=== PATIENT | female | born 1960 | race Caucasian/White ===

== ENCOUNTER 2018-01-08 11:57 | Inpatient (IN) | payer MEDICARE ==
[~2018-01-08] VITALS: Ht 165.1 cm; Wt 63.6 kg
[2018-01-08 13:30] VITALS: BP 117/68
[2018-01-08] MEDS ORDERED: METO-269 PO (14:02)
[2018-01-08] MEDS ORDERED: AMOX50TA PO (14:02)
[2018-01-08] MEDS ORDERED: CLON1TAB4 PO (14:02)
[2018-01-08] MEDS ORDERED: MORP30TA PO (14:02)
[2018-01-08] MEDS ORDERED: AMLO5TAB2 PO (14:02)
[2018-01-08] MEDS ORDERED: POTA20TA84 PO (14:02)
[2018-01-08] MEDS ORDERED: WARF-31 PO (14:02)
[2018-01-08] MEDS ORDERED: CLON0.5T11 PO (14:02)
[2018-01-08] MEDS ORDERED: CHLO25TA PO (14:02)
[2018-01-08] MEDS ORDERED: ZOLP10TA4 PO (14:02)
[2018-01-08] MEDS ORDERED: ONDANSETRON PF 4 MG/2 ML VIAL. IV PRN ×2 (14:15→14:30)
[2018-01-08] MEDS ORDERED: ZOLPIDEM 5 MG TABLET. PO PRN (14:15)
[2018-01-08] MEDS ORDERED: clonazePAM 0.5 MG TABLET PO PRN (14:15)
--- NOTE | 2018-01-08 14:22 | PDOC ---
CIELO HERNANDEZ HEAD GRINDER 01/08/18 1422: Provider Note Provider Note 01/08/2018 1400 Presently doing well, VSS. no CP but still has some FINLEY although no pleural effusion nor consolidations noted from today's CXR. Was initially hypotensive with mild bradycardia today at [place] due to morphine, thiazide, norvasc and toprol given Seen by cardiology at [place] today Persistent low Na and K with CP/FINLEY/PVCs Warfarin for clotting disorder and May Thurner syndrome Hx of cephalic AVM, IVC filter, Hx of iliac vein stent, hx of histoplasmosis and recent PNA with levaquin and prednisone 2 quarts gatorade daily since 2 weeks ago, multiple K supplements at home. Prednisone and levaquin finished last Thursday for her PNA and sinusitis. TSH, BMP, Mg, Urine osm,K,Na TTE, MPI in am Consider nephrology consult. Stop chlorthalidone, no aldactone. No ARB. Continue with norvasc with lower dose of toprol to restart tomorrow and monitor BP/HR. Hydralazine PRN Pls see cardiology consult attached to chart today for further details. YOEL HAYS MD 01/08/18 1635: Provider Note Provider Note Pt. seen and examined. Agree with above INPATIENT NURSING AIDE note. 57 y.o woman with atypical chest pain. Normal cardiac exam. Supportive care. Await nephrology, neurology consults . MPI pending. CIELO HERNANDEZ APRN Jan 08, 2018 14:22 YOEL HAYS MD Jan 08, 2018 16:35
[2018-01-08] MEDS ORDERED: IBUPROFEN 400 MG TABLET. PO PRN (14:30)
[2018-01-08] MEDS ORDERED: MORPHINE SULFATE 2 MG/ML VIAL. IV PRN (14:30)
[2018-01-08] MEDS ORDERED: MAG HYDROX/ALUMINUM HYD/SIMETH 30 ML ORAL.SUSP PO PRN (14:30)
[2018-01-08] MEDS ORDERED: PROCHLORPERAZINE 10 MG/2 ML VIAL. IV PRN (14:30)
[2018-01-08] MEDS ORDERED: MAGNESIUM HYDROXIDE 2,400 MG/30 ML ORAL.SUSP. PO PRN (14:30)
[2018-01-08] MEDS ORDERED: oxyCODONE IR 5 MG TABLET PO PRN (14:30)
[2018-01-08] MEDS ORDERED: CALCIUM CARBONATE 500 MG TAB.CHEW PO PRN (14:30)
--- NOTE | 2018-01-08 14:42 | PDOC1 ---
History and Physical Date of Admission Date of Admission 01/08/18 Identification/Chief Complaint Chief Complaint chest pain Source Source: Chart review, Patient History of Present Illness History of Present Illness 57 yo F, was sent from [facility] for chest pain. pT Said she started to feel substernal chest pressure feeling about 2 weeks ago , with some cough , smoking, went to PCP, was found low na, K, High wbc wo details, augmentin given. She went back to , was told PNA, levaqin was given. yesterday she went to see PCP again since the chest pain is getting worse, was fouND PVC and admitted to ICU. The chest pain only happens when walks, gone when sit down, with sob, but without diaphoresis, n/v. said not worsening cough compared to her baseline. has h/o AVM, hypercoagulopathy dz , DVT on warfarin, IVC filter. avm on scalp, pt has worsening headache for 2 weeks. EKG OK. LOW k 3.2. MAG 2 inr 4 as per pt. Past Medical History Cardiovascular: HTN Past Surgical History Past Surgical History: No pertinent history Family History Family History: Hypertension Social History Smoke: 1 pack per day ALCOHOL: rare Drugs: None Current Medications Current Medications Current Medications Medications (Trade) Dose Ordered Sig/Gerry Start Time Stop Time Status Last Admin Dose Admin Acetaminophen (Tylenol) 650 mg PRN Q6HRS PRN 01/08/18 14:30 UNV Al Hydroxide/Mg Hydroxide (Mylanta Plus Xs) 30 ml PRN Q3HRS PRN 01/08/18 14:30 UNV Amlodipine Besylate (Norvasc) 5 mg DAILYWSUP 01/08/18 17:00 Calcium Carbonate/ Glycine (Tums) 500 mg PRN Q3HRS PRN 01/08/18 14:30 UNV Clonazepam (KlonoPIN) 1 mg PRN QHS PRN 01/08/18 14:15 Ibuprofen (Motrin) 400 mg PRN Q6HRS PRN 01/08/18 14:30 UNV Magnesium Hydroxide (Milk Of Magnesia) 2,400 mg PRN Q12HR PRN 01/08/18 14:30 UNV Metoprolol Succinate (Toprol Xl) 50 mg DAILYBFRSUP 01/08/18 17:00 Morphine Sulfate (Morphine Sulfate) 1 mg PRN Q1HR PRN 01/08/18 14:30 UNV Morphine Sulfate (Ms Contin) 60 mg [id number] 01/08/18 18:00 Non-Formulary Medication 1 ea DAILY 01/09/18 09:00 UNV Ondansetron HCl (Zofran) 4 mg PRN Q6HRS PRN 01/08/18 14:30 UNV Oxycodone HCl (Roxicodone) 5 mg PRN Q3HRS PRN 01/08/18 14:30 UNV Potassium Chloride (Klor-Con) 20 meq TIDWMEALS 01/08/18 17:00 Prochlorperazine Edisylate (Compazine) 10 mg PRN Q6HRS PRN 01/08/18 14:30 UNV Spironolactone (Aldactone) 25 mg DAILY 01/09/18 09:00 01/09/18 09:00 DC Warfarin Sodium (Coumadin Per Pharmacy) 1 each PRN DAILY PRN 01/08/18 14:15 UNV Zolpidem Tartrate (Ambien) 5 mg PRN QHS PRN 01/08/18 14:30 UNV Allergies Allergies Allergies Coded Allergies Type Severity Reaction Last Updated Verified ciprofloxacin Allergy Intermediate 01/08/18 Yes lisinopril Allergy Intermediate 01/08/18 Yes omeprazole Allergy Intermediate 01/08/18 Yes ROS Review of System CONSTITUTIONAL: No fever or chills EYES: No recent changes SKIN: No rash or itching CARDIOVASCULAR: No chest pain, syncope, palpitations, or edema RESPIRATORY: No SOB or cough GASTROINTESTINAL: No nausea, vomiting or abdominal pain NEUROLOGICAL: No headaches or weakness ENDOCRINE: No cold or heat intolerance GENITOURINARY: No urgency or frequency of urination MUSCULOSKELETAL: No back pain or joint pain LYMPHATICS: No enlarged lymph nodes PSYCHIATRIC: No anxiety or depression Physical Exam Physical Exam GEN.: No apparent distress. Alert and oriented. HEENT: Head is normocephalic, atraumatic NECK: Supple. LUNGS: Clear to auscultation. HEART: RRR, S1, S2 present. Peripheral pulses intact ABDOMEN: Soft, nontender. Positive bowel sounds. EXTREMITIES: Without any cyanosis. NEUROLOGIC: Normal speech, normal tone PSYCHIATRIC: Normal affect, normal mood. SKIN: No ulcerations Vitals Vitals Vital Signs Date Time Temp Pulse Resp B/P (MAP) Pulse Ox O2 Delivery O2 Flow Rate FiO2 01/08/18 13:30 98.6 68 18 117/68 (84) 97 Room Air 98.6 VTE Prophylaxis Ordered VTE Prophylaxis Devices: Yes VTE Pharmacological Prophylaxi: Yes Assessment/Plan Assessment/Plan chest pain, need to rule out unstable angina hyponatremia hypokalemia, 2/2 diuretics likely headache , likely tension headache h/o scalp AVM h/o hypercoagulopathy with dvt, on coumadin and IVC filter chronic pain liklely copd with tobaccoism plan: card, neuro consult hold chlothalidone cont high dose morphine MPI tmr, echo labs today INR daily, hold warfarin for today check cE, TSH PHYLICIA ALCANTARA MD Jan 08, 2018 14:42
[2018-01-08] MEDS: ACETAMINOPHEN 325 MG TABLET. PO PRN (14:51)
[2018-01-08 15:00] VITALS: BP 124/76
[2018-01-08] MEDS ORDERED: hydrALAZINE 25 MG TABLET PO PRN (15:30)
[2018-01-08 16:06] LABS: BASO % 0 % (0-3); EOS # 0.1 x10^3/uL (0.0-0.7); EOS % 2 % (0-3); HEMATOCRIT 43.5 % (36.0-47.0); HEMOGLOBIN 15.1 g/dL (12.0-15.5); LYMPH % 35 % (24-48); MEAN CORPUSCULAR HEMOGLOBIN 31 pg (25-35); MEAN CORPUSCULAR HGB CONC 35 g/dL (31-37); MEAN CORPUSCULAR VOLUME 90 fL (79-100); MONO # 0.4 x10^3/uL (0.0-1.1); MONO % 5 % (0-9); NEUT % 58 % (31-73); PLATELET COUNT 289 x10^3/uL (140-400); RED BLOOD COUNT 4.82 x10^6/uL (3.50-5.40); RED CELL DISTRIBUTION WIDTH 13.4 % (11.5-14.5); WHITE BLOOD COUNT 8.7 x10^3/uL (4.0-11.0)
[2018-01-08 16:16] LABS: PROTHROMBIN TIME PATIENT 25.3 SEC (11.7-14.0)
[2018-01-08 16:21] LABS: CALCIUM 9.5 mg/dL (8.5-10.1); CREATININE 0.9 mg/dL (0.6-1.0); GFR 64.1; MAGNESIUM 2.1 mg/dL (1.8-2.4); POTASSIUM 3.7 mmol/L (3.5-5.1)
[2018-01-08 16:38] LABS: CREATINE KINASE 57 U/L (26-192)
--- NOTE | 2018-01-08 16:46 | CARD ---
MR#: [id number] Date of Study: 01/08/2018 Ordering Physician: CIELO HERNANDEZ, Referring Physician: PHYLICIA ALCANTARA Tech: NELLY Salmeron APPROVED REPORT EXAM: Two-dimensional and M-mode echocardiogram with Doppler and color Doppler. Other Information Quality : AverageHR: 62bpm INDICATION Chest Pain 2D DIMENSIONS RVDd3.3 (2.9-3.5cm)Left Atrium(2D)3.2 (1.6-4.0cm) IVSd0.7 (0.7-1.1cm)Aortic Root(2D)2.8 (2.0-3.7cm) LVDd5.3 (3.9-5.9cm)LVOT Diameter1.9 (1.8-2.4cm) PWd0.8 (0.7-1.1cm)LVDs3.5 (2.5-4.0cm) FS (%) 34.9 %SV87.1 ml LVEF(%)63.7 (>50%) Aortic Valve AoV Peak Aureliano.133.8cm/sAoV VTI29.7cm AO Peak GR.7.2mmHgLVOT Peak Aureliano.93.1cm/s LVOT VTI 21.61cmAO Mean GR.4mmHg MADAI (VMAX)1.31kk0QWY (VTI)2.07cm2 Mitral Valve MV E Kzbmbfuk29.1cm/sMV E Peak Gr.17mmHg MV DECEL [id number] A Nxniqoof24.1cm/s MV KAZ82coZ/A Ratio1.0 MVA (PHT)3.34cm2 TDI E/Lateral E'4.4E/Medial E'6.8 Pulmonary Valve PV Peak Laspfdkn94.9cm/sPV Peak Grad.3mmHg Tricuspid Valve TR P. Pizhnplr687ve/sTR Peak Gr.10mmHg Pulmonary Vein S1 Yooscndy94.9cm/sD2 Ottezhix68.2cm/s LEFT VENTRICLE The left ventricle is normal size. There is normal left ventricular wall thickness. The left ventricu lar systolic function is normal and the ejection fraction is within normal range. Ef 55% There is nor mal LV segmental wall motion. The left ventricular diastolic function and filling is normal for age. RIGHT VENTRICLE The right ventricle is normal size. The right ventricular systolic function is normal. ATRIA The left atrium size is normal. The right atrium size is normal. The interatrial septum is intact wit h no evidence for an atrial septal defect or patent foramen ovale as noted on 2-D or Doppler imaging. AORTIC VALVE The aortic valve is thickened but opens well. Doppler and Color Flow revealed no significant aortic r egurgitation. There is no significant aortic valvular stenosis. There is no aortic valvular vegetatio n. MITRAL VALVE The mitral valve is thickened but opens well. There is no evidence of mitral valve prolapse. There is no mitral valve stenosis. Doppler and Color-flow revealed trace mitral regurgitation. TRICUSPID VALVE The tricuspid valve leaflets are thickened , but open well. Doppler and Color Flow revealed trace tri cuspid regurgitation. There is prolapse noted in the septal tricuspid valve leaflet. There is no tric uspid valve stenosis. PULMONIC VALVE The pulmonic valve is not well visualized. Doppler and Color Flow revealed no pulmonic valvular regur gitation. There is no pulmonic valvular stenosis. GREAT VESSELS The aortic root is normal in size. The IVC was not visualized. PERICARDIAL EFFUSION There is no pleural effusion. There is no evidence of significant pericardial effusion. Critical Notification Critical Value: No <Conclusion> The left ventricular systolic function is normal and the ejection fraction is within normal range. Ef 55% There is normal LV segmental wall motion. Signed by : Parish Tirado, Electronically Approved : 01/08/2018 16:45:43
[2018-01-08] MEDS ORDERED: METOPROLOL SUCC 24HR ER 50 MG TAB.ER.24H. PO SCH (17:00)
[2018-01-08] MEDS ORDERED: amLODIPine BESYLATE 5 MG TABLET PO SCH ×2 (17:00→19:30)
[2018-01-08] MEDS: POTASSIUM CHLORIDE 20 MEQ TABLET.ER. PO SCH (17:35)
[2018-01-08] MEDS: MORPHINE ER 30 MG TABLET.ER PO SCH (17:36)
--- NOTE | 2018-01-08 18:00 | PDOC2 ---
NEUROLOGY CONSULT Date of Admission Date of Admission DATE: 01/08/18 TIME: 17:48 Reason for Consult Reason for Consult: IMPRESSION: Headaches. Extracranial AVM per Hx. Hyponatremia. Hypokalemia. Smoking. RECOMMENDATIONS/PLAN: HCT w/o contrast. Lab: see orders. Treat medical diseases. HISTORY OF THE PRESENT ILLNESS: This is a 57-y-old female patient who was transferred from [facility] for [facility] due to chest pain. The patient has long standing history of headaches for decades but complained headaches in her entire head this time. Her headaches are not severe at the time of exam and she stated her headaches were 1-2/10. She stated she had AVM extracranial in her right temporal head area, no intracranial abnormalities in the previous evaluation outside hospital and in [facility]. Past Medical History Cardiovascular: HTN Neurology: Chronic headaches. Past Surgical History No major surgery recently. Family History Hypertension ALLERGY: Reviewed. MEDICATIONS: Refer to [facility] [place] SOCIAL HISTORY: Lives at home. Denies illicit drug use. She smokes 1 pack of cigarettes a day for many years. REVIEW OF SYSTEMS: Constitutional: No malnutrition, weight loss, cachexia. Head: No traumatic brain or head injury. Skin: No edema, or rash. Ear: No infection. Eyes: No vision loss or color blindness. Nose: No bleeding or purulent discharges. Hearing: No hearing decrease. Neck: No injury. Breast: No history of cancer, masses,or discharges. Cardiac: Chest pain. Pulmonary: No COPD. GI: No GI ulcer, GI bleeding. Urinary/genital: UTI. Endocrinologic: No cousin face, craniofacial dysmorphism, polydactyly. Skeletomuscular: No muscular atrophy, deformity. Neurological: see HP. Psychiatric: Denies drug use/abuse. Otherwise, not [id number] review of systems. PHYSICAL EXAMINATION: General appearance is in subacute distress. HEENT: Normocephalic and nontraumatic. Eyes, nose, ears, and throat are unremarkable. Neck is supple. No lymphadenopathy. No bruits are heard over the carotid artery. No crepitus. Cardiovascular: S1, S2, regular rate and rhythm. Pulmonary: Clear to auscultation bilaterally. Abdomen: Bowel sounds are positive. Abdomen is soft, nontender, and nondistended. Extremities: No rash, lesions, or edema. No restriction of range of motion NEUROLOGICAL EXAMINATION: Alert Oriented to time, place and person. PERRL. EOMI. CN: no focal findings. Muscle tone: within normal. Muscle strength: 5 DTR: 2 Plantar reflex: Flexor response bilaterally Gait: not examined in bed. Sensory exam: no abnormal findings. No cerebellar signs elicited. F-T-N test accurate. Current Medications Current Medications Current Medications Acetaminophen (Tylenol) 500 mg PRN Q6HRS PRN PO MILD PAIN / TEMP; Start at 14:15 Metoprolol Succinate (Toprol Xl) 50 mg DAILYBFRSUP PO ; Start 01/08/18 at 17:00 ; Stop 01/08/18 at 17:00; Status DC Morphine Sulfate (Ms Contin) 60 mg [id number] PO Last administered on 01/08/18at 17: 36; Start 01/08/18 at 18:00 Chlorthalidone (Thalitone) 25 mg DAILY PO ; Start 01/09/18 at 09:00; Status Cancel Ondansetron HCl (Zofran) 4 mg PRN Q8HRS PRN IV NAUSEA/VOMITING; Start 01/08/18 at 14:15; Stop 01/08/18 at 14:39; Status DC Potassium Chloride (Klor-Con) 20 meq TIDWMEALS PO Last administered on at 17:35; Start 01/08/18 at 17:00 Spironolactone (Aldactone) 25 mg DAILY PO ; Start 01/09/18 at 09:00; Stop at 09:00; Status DC Warfarin Sodium (Coumadin Per Pharmacy) 1 each PRN DAILY PRN MC SEE COMMENTS Last administered on 01/08/18at 15:22; Start 01/08/18 at 14:15 Zolpidem Tartrate (Ambien) 5 mg QHS PRN PO INSOMNIA; Start 01/08/18 at 14:15 Amlodipine Besylate (Norvasc) 5 mg DAILYWSUP PO ; Start 01/08/18 at 17:00; Stop 01/08/18 at 17:00; Status DC Clonazepam (KlonoPIN) 0.5 mg PRN DAILY PRN PO ANXIETY / AGITATION; Start at 14:15 Clonazepam (KlonoPIN) 1 mg PRN QHS PRN PO ANXIETY / AGITATION; Start 01/08/18 at 14:15 Ondansetron HCl (Zofran) 4 mg PRN Q6HRS PRN IV NAUSEA/VOMITING; Start 01/08/18 at 14:30 Prochlorperazine Edisylate (Compazine) 10 mg PRN Q6HRS PRN IV NAUSEA/VOMITING; Start 01/08/18 at 14:30 Al Hydroxide/Mg Hydroxide (Mylanta Plus Xs) 30 ml PRN Q3HRS PRN PO HEARTBURN / GAS; Start 01/08/18 at 14:30 Calcium Carbonate/ Glycine (Tums) 500 mg PRN Q3HRS PRN PO UPSET STOMACH; Start 01/08/18 at 14:30 Zolpidem Tartrate (Ambien) 5 mg PRN QHS PRN PO INSOMNIA, MAY REPEAT IN 1HR; Start 01/08/18 at 14:30 Oxycodone HCl (Roxicodone) 5 mg PRN Q3HRS PRN PO BREAKTHROUGH PAIN; Start 01/08 at 14:30 Morphine Sulfate (Morphine Sulfate) 1 mg PRN Q1HR PRN IV PAIN; Start 01/08/18 at 14:30 Acetaminophen (Tylenol) 650 mg PRN Q6HRS PRN PO Headaches, Temp > 101.5F Last administered on 01/08/18at 14:51; Start 01/08/18 at 14:30 Ibuprofen (Motrin) 400 mg PRN Q6HRS PRN PO MILD PAIN; Start 01/08/18 at 14:30 Magnesium Hydroxide (Milk Of Magnesia) 2,400 mg PRN Q12HR PRN PO CONSTIPATION; Start 01/08/18 at 14:30 Amlodipine Besylate (Norvasc) 5 mg DAILY PO ; Start 01/09/18 at 09:00 Metoprolol Succinate (Toprol Xl) 25 mg DAILYBFRSUP PO ; Start 01/09/18 at 17:00 Hydralazine HCl (Apresoline) 25 mg PRN Q6HRS PRN PO ELEVATED BP, SEE COMMENTS; Start 01/08/18 at 15:30 Active Scripts Active Reported Zolpidem Tartrate 10 Mg Tablet 1 Tab PO QHS Morphine Sulfate 30 Mg Tablet 2 Tab PO BID66 Chlorthalidone 25 Mg Tablet 1 Tab PO DAILY Clonazepam 1 Mg Tablet 1 Tab PO QHS Clonazepam 0.5 Mg Tablet 1 Tab PO DAILY08 K-Tab ER (Potassium Chloride) 20 Meq Tablet.er 20 Meq PO TID Toprol Xl (Metoprolol Succinate) 50 Mg Tab.er.24h 1 Tab PO DAILYWSUP Warfarin Sodium 5 Mg Tablet 1 Tab PO DAILY Amoxapine 50 Mg Tablet 50 Mg PO QHS Amlodipine Besylate 5 Mg Tablet 5 Mg PO DAILY Allergies Allergies: Allergies Coded Allergies Type Severity Reaction Last Updated Verified ciprofloxacin Allergy Intermediate 01/08/18 Yes lisinopril Allergy Intermediate 01/08/18 Yes omeprazole Allergy Intermediate 01/08/18 Yes ROS Review of System The patient denies any associated fevers, chills, headache, ear pain, rhinorrhea , sore throat, stiff neck, productive cough, chest pain, shortness of breath, back or flank pain, abdominal pain, nausea, vomiting, diarrhea, constipation, dysuria, rash, numbness, weakness, tingling, incontinence, difficulty ambulating, or diaphoresis. Physical Exam Physical Exam General: Well developed, well nourished, no acute distress, well appearing HEENT: Pupils equally round and reactive to light, EOMI, no discharge, normal conjunctiva Neck: Supple, no nuchal rigidity, no JVD, trachea midline, no tenderness Cardiac: RRR, no murmurs, no gallops, no rubs Chest/Lungs: CTAB, no wheeze, no rhonchi, no crackles Abdomen: soft, non-distended, no guarding, no peritoneal signs, non-tender Back: No tenderness Extremities: no edema, pulses intact, non-tender,capillary refill <3 sec bilateral upper and lower extremities, Neuro: Alert and oriented x 4, no focal deficits, normal speech Vitals Vitals: Vital Signs Date Time Temp Pulse Resp B/P (MAP) Pulse Ox O2 Delivery O2 Flow Rate FiO2 01/08/18 17:36 98 Room Air 01/08/18 15:00 98.8 78 18 124/76 (92) 98.8 Labs Labs Laboratory Tests Test 01/08/18 16:00 White Blood Count 8.7 x10^3/uL (4.0-11.0) Red Blood Count 4.82 x10^6/uL (3.50-5.40) Hemoglobin 15.1 g/dL (12.0-15.5) Hematocrit 43.5 % (36.0-47.0) Mean Corpuscular Volume 90 fL (79-100) Mean Corpuscular Hemoglobin 31 pg (25-35) Mean Corpuscular Hemoglobin Concent 35 g/dL (31-37) Red Cell Distribution Width 13.4 % (11.5-14.5) Platelet Count 289 x10^3/uL (140-400) Neutrophils (%) (Auto) 58 % (31-73) Lymphocytes (%) (Auto) 35 % (24-48) Monocytes (%) (Auto) 5 % (0-9) Eosinophils (%) (Auto) 2 % (0-3) Basophils (%) (Auto) 0 % (0-3) Neutrophils # (Auto) 5.0 x10^3uL (1.8-7.7) Lymphocytes # (Auto) 3.0 x10^3/uL (1.0-4.8) Monocytes # (Auto) 0.4 x10^3/uL (0.0-1.1) Eosinophils # (Auto) 0.1 x10^3/uL (0.0-0.7) Basophils # (Auto) 0.0 x10^3/uL (0.0-0.2) Prothrombin Time 25.3 SEC (11.7-14.0) Prothromb Time International Ratio 2.4 (0.8-1.1) Sodium Level 126 mmol/L (136-145) Potassium Level 3.7 mmol/L (3.5-5.1) Chloride Level 91 mmol/L (98-107) Carbon Dioxide Level 31 mmol/L (21-32) Anion Gap 4 (6-14) Blood Urea Nitrogen 14 mg/dL (7-20) Creatinine 0.9 mg/dL (0.6-1.0) Estimated GFR (Cockcroft-Gault) 64.1 Glucose Level 102 mg/dL (70-99) Calcium Level 9.5 mg/dL (8.5-10.1) Magnesium Level 2.1 mg/dL (1.8-2.4) Creatine Kinase 57 U/L (26-192) Creatine Kinase MB (Mass) 0.7 ng/mL (0.0-3.6) Creatine Kinase MB Relative Index % (0-4) Troponin I Quantitative < 0.017 ng/mL (0.000-0.055) Thyroid Stimulating Hormone (TSH) 1.054 uIU/mL (0.358-3.74) Laboratory Tests Test 01/08/18 16:00 White Blood Count 8.7 x10^3/uL (4.0-11.0) Red Blood Count 4.82 x10^6/uL (3.50-5.40) Hemoglobin 15.1 g/dL (12.0-15.5) Hematocrit 43.5 % (36.0-47.0) Mean Corpuscular Volume 90 fL (79-100) Mean Corpuscular Hemoglobin 31 pg (25-35) Mean Corpuscular Hemoglobin Concent 35 g/dL (31-37) Red Cell Distribution Width 13.4 % (11.5-14.5) Platelet Count 289 x10^3/uL (140-400) Neutrophils (%) (Auto) 58 % (31-73) Lymphocytes (%) (Auto) 35 % (24-48) Monocytes (%) (Auto) 5 % (0-9) Eosinophils (%) (Auto) 2 % (0-3) Basophils (%) (Auto) 0 % (0-3) Neutrophils # (Auto) 5.0 x10^3uL (1.8-7.7) Lymphocytes # (Auto) 3.0 x10^3/uL (1.0-4.8) Monocytes # (Auto) 0.4 x10^3/uL (0.0-1.1) Eosinophils # (Auto) 0.1 x10^3/uL (0.0-0.7) Basophils # (Auto) 0.0 x10^3/uL (0.0-0.2) Prothrombin Time 25.3 SEC (11.7-14.0) Prothromb Time International Ratio 2.4 (0.8-1.1) Sodium Level 126 mmol/L (136-145) Potassium Level 3.7 mmol/L (3.5-5.1) Chloride Level 91 mmol/L (98-107) Carbon Dioxide Level 31 mmol/L (21-32) Anion Gap 4 (6-14) Blood Urea Nitrogen 14 mg/dL (7-20) Creatinine 0.9 mg/dL (0.6-1.0) Estimated GFR (Cockcroft-Gault) 64.1 Glucose Level 102 mg/dL (70-99) Calcium Level 9.5 mg/dL (8.5-10.1) Magnesium Level 2.1 mg/dL (1.8-2.4) Creatine Kinase 57 U/L (26-192) Creatine Kinase MB (Mass) 0.7 ng/mL (0.0-3.6) Creatine Kinase MB Relative Index % (0-4) Troponin I Quantitative < 0.017 ng/mL (0.000-0.055) Thyroid Stimulating Hormone (TSH) 1.054 uIU/mL (0.358-3.74) OLGA MOYA MD Jan 08, 2018 18:00
[2018-01-08 19:13] LABS: BARBITURATES NEG (NEG); BENZODIAZEPINES NEG (NEG); CANNABINOIDS NEG (NEG); COCAINE NEG (NEG); METHADONE NEG (NEG); OPIATES POS (NEG); PHENCYCLIDINE NEG (NEG)
--- NOTE | 2018-01-08 19:14 | RAD ---
PQRS Compliance statement: One or more of the following individualized dose reduction techniques were utilized for this examination: 1. Automated exposure control. 2. Adjustment of the mA and/or kV according to patient size. 3. Use of iterative reconstruction technique. Indication:extracranial AVM, HEADACHES, HX Headaches, HTN, NO PRIORS TECHNIQUE: CT head without IV contrast COMPARISON:None FINDINGS: No pathologic extra-axial or intra-axial fluid collection. The ventricles and basal cisterns are within normal limits. No abnormal calcifications seen. No acute intracranial bleed. No focal loss of de guzman-white differentiation. No suspicious calvarial lesion. Visualized paranasal sinuses and mastoid air cells are clear. Visualized orbits within normal limits. IMPRESSION: No acute intracranial process. Electronically signed by: Syd Ellis DO (01/08/2018 7:10 PM) [facility]
[2018-01-08 19:19] LABS: AMPHETAMINE/METHAMPHETAMINE NEG (NEG)
[2018-01-08] MEDS ORDERED: WARFARIN 5 MG TABLET. PO ONE (19:24)
[2018-01-08 19:34] VITALS: BP 115/72
[2018-01-08] MEDS: AMOXAPINE 50 MG PO SCH (20:40)
[2018-01-08] MEDS: clonazePAM 1 MG TABLET PO PRN (20:40)
[2018-01-08] MEDS: ZOLPIDEM 5 MG TABLET. PO PRN (20:40)
[2018-01-08] MEDS: ACETAMINOPHEN 500 MG TABLET PO PRN (22:06)
[2018-01-08 22:07] VITALS: BP 108/66
[2018-01-09 03:00] VITALS: BP 92/61
[2018-01-09 05:04] LABS: PROTHROMBIN TIME PATIENT 21.7 SEC (11.7-14.0)
[2018-01-09 05:12] LABS: BASO % 1 % (0-3); EOS # 0.2 x10^3/uL (0.0-0.7); EOS % 3 % (0-3); HEMATOCRIT 40.3 % (36.0-47.0); HEMOGLOBIN 14.3 g/dL (12.0-15.5); LYMPH # 4.4 x10^3/uL (1.0-4.8); LYMPH % 66 % (24-48); MEAN CORPUSCULAR HEMOGLOBIN 32 pg (25-35); MEAN CORPUSCULAR HGB CONC 36 g/dL (31-37); MEAN CORPUSCULAR VOLUME 90 fL (79-100); MONO # 0.5 x10^3/uL (0.0-1.1); MONO % 7 % (0-9); NEUT # 1.6 x10^3uL (1.8-7.7); NEUT % 24 % (31-73); PLATELET COUNT 254 x10^3/uL (140-400); RED CELL DISTRIBUTION WIDTH 12.9 % (11.5-14.5); WHITE BLOOD COUNT 6.8 x10^3/uL (4.0-11.0)
[2018-01-09 05:31] LABS: CALCIUM 8.7 mg/dL (8.5-10.1); CREATININE 0.8 mg/dL (0.6-1.0); GFR 73.4; POTASSIUM 3.2 mmol/L (3.5-5.1)
[2018-01-09] MEDS: MORPHINE ER 30 MG TABLET.ER PO SCH ×2 (05:52→18:01)
[2018-01-09 07:00] VITALS: BP 86/54
[2018-01-09] MEDS ORDERED: POTASSIUM CHLORIDE 20MEQ 50 ML IV ONE (08:30)
[2018-01-09] MEDS: POTASSIUM CHLORIDE 20 MEQ TABLET.ER. PO SCH ×3 (08:56→17:03)
[2018-01-09] MEDS ORDERED: amLODIPine BESYLATE 5 MG TABLET PO SCH (09:00)
[2018-01-09] MEDS ORDERED: CHLORTHALIDONE 25 MG TABLET. PO SCH (09:00)
[2018-01-09] MEDS ORDERED: SPIRONOLACTONE 25 MG TABLET PO SCH (09:00)
[2018-01-09] MEDS ORDERED: REGADENOSON 0.4 MG/5 ML DISP.SYRIN. IV ONE (09:30)
[2018-01-09 11:00] VITALS: BP 90/58
[2018-01-09] MEDS: ACETAMINOPHEN 325 MG TABLET. PO PRN (11:11)
[2018-01-09] MEDS: ACETAMINOPHEN 500 MG TABLET PO PRN (11:11)
[2018-01-09] MEDS: IV NORMAL SALINE 1000ML BAG 1,000 ML IV SCH (11:11)
--- NOTE | 2018-01-09 13:24 | PDOC2 ---
CONSULT Date of Consult Date of Consult DATE: 01/09/18 TIME: 13:08 Reason for Consult Reason for Consult: Persistent low potassium and sodium despite replacement Referring Physician Referring Physician: Yi Nieto Identification/Chief Complaint Chief Complaint CP Source Source: Chart review, Patient History of Present Illness Reason for Visit: Mrs. Mello is a pleasant 57-year-old female who has not been to this hospital in the past. Hence her baseline sodium levels are not known. She however tells me that in December she was found to have a pneumonia. She has not been eating drinking well since. More recently she was also found to have sinusitis. She had blood work done with Dr. Lancaster and was found to have electrolyte abnormalities. She was admitted to the hospital for the same Here she was noted to have a sodium of 126 yesterday and a potassium of 3.7. It is unclear to me how persistent her hyponatremia and hypokalemia are. Magnesium was checked yesterday and was 2.1. She was admitted with chest pain. She denies knowledge of nausea vomiting. She denies excessive water intake or light beer use. She tells me that she has been on chlorthalidone for many years as well as on her antidepressant. No new medications were added in the recent past that she is aware of she however tells me that she had taken prednisone for 3 days in December. She does not remember the dose. Denies orthostasis currently Past Medical History Cardiovascular: HTN Psych: Depression Past Surgical History Past Surgical History: Cholecystectomy, Hysterectomy, No pertinent history Family History Family History: Hypertension Social History 1 pack per day ALCOHOL: rare Drugs: None Lives: with Family Current Medications Current Medications Current Medications Acetaminophen (Tylenol) 500 mg PRN Q6HRS PRN PO MILD PAIN / TEMP Last administered on 01/09/18at 11:11; Start 01/08/18 at 14:15; Stop 01/09/18 at 12:59 ; Status DC Metoprolol Succinate (Toprol Xl) 50 mg DAILYBFRSUP PO ; Start 01/08/18 at 17:00 ; Stop 01/08/18 at 17:00; Status DC Morphine Sulfate (Ms Contin) 60 mg [id number] PO Last administered on 01/09/18at 05: 52; Start 01/08/18 at 18:00 Chlorthalidone (Thalitone) 25 mg DAILY PO ; Start 01/09/18 at 09:00; Status Cancel Ondansetron HCl (Zofran) 4 mg PRN Q8HRS PRN IV NAUSEA/VOMITING; Start 01/08/18 at 14:15; Stop 01/08/18 at 14:39; Status DC Potassium Chloride (Klor-Con) 20 meq TIDWMEALS PO Last administered on at 12:58; Start 01/08/18 at 17:00 Spironolactone (Aldactone) 25 mg DAILY PO ; Start 01/09/18 at 09:00; Stop at 09:00; Status DC Warfarin Sodium (Coumadin Per Pharmacy) 1 each PRN DAILY PRN MC SEE COMMENTS Last administered on 01/09/18at 12:41; Start 01/08/18 at 14:15 Zolpidem Tartrate (Ambien) 5 mg QHS PRN PO INSOMNIA; Start 01/08/18 at 14:15; Status Cancel Amlodipine Besylate (Norvasc) 5 mg DAILYWSUP PO ; Start 01/08/18 at 17:00; Stop 01/08/18 at 17:00; Status DC Clonazepam (KlonoPIN) 0.5 mg PRN DAILY PRN PO ANXIETY / AGITATION; Start at 14:15 Clonazepam (KlonoPIN) 1 mg PRN QHS PRN PO ANXIETY / AGITATION Last administered on 01/08/18at 20:40; Start 01/08/18 at 14:15 Ondansetron HCl (Zofran) 4 mg PRN Q6HRS PRN IV NAUSEA/VOMITING 1st choice; Start 01/08/18 at 14:30 Prochlorperazine Edisylate (Compazine) 10 mg PRN Q6HRS PRN IV NAUSEA/VOMITING, 2nd choice; Start 01/08/18 at 14:30 Al Hydroxide/Mg Hydroxide (Mylanta Plus Xs) 30 ml PRN Q3HRS PRN PO HEARTBURN / GAS; Start 01/08/18 at 14:30 Calcium Carbonate/ Glycine (Tums) 500 mg PRN Q3HRS PRN PO UPSET STOMACH; Start 01/08/18 at 14:30 Zolpidem Tartrate (Ambien) 5 mg PRN QHS PRN PO INSOMNIA, MAY REPEAT IN 1HR Last administered on 01/08/18at 20:40; Start 01/08/18 at 14:30 Oxycodone HCl (Roxicodone) 5 mg PRN Q3HRS PRN PO BREAKTHROUGH PAIN; Start 01/08 at 14:30 Morphine Sulfate (Morphine Sulfate) 1 mg PRN Q1HR PRN IV PAIN; Start 01/08/18 at 14:30 Acetaminophen (Tylenol) 650 mg PRN Q6HRS PRN PO Headaches, Temp > 101.5F Last administered on 01/09/18at 11:11; Start 01/08/18 at 14:30 Ibuprofen (Motrin) 400 mg PRN Q6HRS PRN PO MILD PAIN; Start 01/08/18 at 14:30 Magnesium Hydroxide (Milk Of Magnesia) 2,400 mg PRN Q12HR PRN PO CONSTIPATION; Start 01/08/18 at 14:30 Amlodipine Besylate (Norvasc) 5 mg DAILY PO ; Start 01/09/18 at 09:00; Stop at 09:00; Status DC Metoprolol Succinate (Toprol Xl) 25 mg DAILYBFRSUP PO ; Start 01/09/18 at 17:00 Hydralazine HCl (Apresoline) 25 mg PRN Q6HRS PRN PO ELEVATED BP, SEE COMMENTS; Start 01/08/18 at 15:30 Amlodipine Besylate (Norvasc) 5 mg DAILYWSUP PO Last administered on 01/08/18at 19:38; Start 01/08/18 at 19:30; Stop 01/09/18 at 08:32; Status DC Warfarin Sodium (Coumadin) 5 mg 1X WARF ONCE PO Last administered on at 19:38; Start 01/08/18 at 19:24; Stop 01/08/18 at 19:25; Status DC Non-Formulary Medication (Amoxapine ) 50 mg QHS PO Last administered on at 20:40; Start 01/08/18 at 21:00 Sodium Chloride 1,000 ml @ 75 mls/hr [id number] IV Last administered on at 11:11; Start 01/09/18 at 08:30 Potassium Chloride/Water 50 ml @ 50 mls/hr 1X ONCE IV Last administered on at 11:12; Start 01/09/18 at 08:30; Stop 01/09/18 at 09:29; Status DC Regadenoson (Lexiscan) 0.4 mg 1X ONCE IV Last administered on 01/09/18at 09:44 ; Start 01/09/18 at 09:30; Stop 01/09/18 at 09:31; Status DC Warfarin Sodium (Coumadin) 8 mg 1X WARF ONCE PO ; Start 01/09/18 at 16:00; Stop 01/09/18 at 16:01 Active Scripts Active Reported Zolpidem Tartrate 10 Mg Tablet 1 Tab PO QHS Morphine Sulfate 30 Mg Tablet 2 Tab PO BID66 Chlorthalidone 25 Mg Tablet 1 Tab PO DAILY Clonazepam 1 Mg Tablet 1 Tab PO QHS Clonazepam 0.5 Mg Tablet 1 Tab PO DAILY08 K-Tab ER (Potassium Chloride) 20 Meq Tablet.er 20 Meq PO TID Toprol Xl (Metoprolol Succinate) 50 Mg Tab.er.24h 1 Tab PO DAILYWSUP Warfarin Sodium 5 Mg Tablet 1 Tab PO DAILY Amoxapine 50 Mg Tablet 50 Mg PO QHS Amlodipine Besylate 5 Mg Tablet 5 Mg PO DAILY Allergies Allergies: Coded Allergies: ciprofloxacin (Verified Allergy, Intermediate, 01/08/18) lisinopril (Verified Allergy, Intermediate, 01/08/18) omeprazole (Verified Allergy, Intermediate, 01/08/18) ROS Review of System Negative for weight loss. Positive for chest pain and decreased by mouth intake in the recent past. All other systems were reviewed and are grossly negative Physical Exam Physical Exam General Appearance: Awake no Alert Oriented x 3 In no Distress Eyes: VIsion Unchanged Conjunctiva Normal EN: No EN Drainage Mucous Memb. moist Neck: no JVD no JVP Supple no Thyromegaly CVS: S1 S2 ? Murmur No Gallop No Rub no Edema Resp: no Rales no Rhonchi no Acc. Muscle use GI: BAS +ve NO Bruit Non Tender Non Distended : no CVA tenderness; no Suprapubic Tenderness SKIN: no Rashes Breast Exam deferred; possible spider angiomatous noted on her anterior chest wall, mild malar erythema cannot be ruled out Mu.Sk: Adequate ROM no Muscle Atrophy Heme: Unable to palpate Obvious LAD no Splenomegaly NEURO: Good Strength and Tone Cranial Nerves II - XII grossly intact Psych: not Depressed no Active hallucination Vital Signs Vital Signs Date Time Temp Pulse Resp B/P (MAP) Pulse Ox O2 Delivery O2 Flow Rate FiO2 01/09/18 11:00 97.9 74 90/58 (69) 93 Room Air 97.9 01/09/18 09:52 18 Assessment & Plan Hyponatremia: Unclear etiology. In the setting of hypokalemia associated with hyponatremia most likely cause is her chlorthalidone. Her by mouth intake is reportedly poor over the last few days and this may have contributed to it also. Urine output appears to be adequate for the time being. Further urine testing will be ordered Hypokalemia presumably due to poor by mouth intake and chlorthalidone use. Agree with supplementation as you currently doing magnesium is adequate thyroid is adequate Malar erythema with spider angiomatous overlying her chest wall: Liver sonogram will be ordered. This may explain possible etiologies of her hyponatremia also Poor by mouth intake: Possible anorexia: Unclear etiology. Labs Labs Laboratory Tests Test 01/08/18 16:00 01/08/18 16:47 01/09/18 04:00 White Blood Count 8.7 x10^3/uL (4.0-11.0) 6.8 x10^3/uL (4.0-11.0) Red Blood Count 4.82 x10^6/uL (3.50-5.40) 4.50 x10^6/uL (3.50-5.40) Hemoglobin 15.1 g/dL (12.0-15.5) 14.3 g/dL (12.0-15.5) Hematocrit 43.5 % (36.0-47.0) 40.3 % (36.0-47.0) Mean Corpuscular Volume 90 fL (79-100) 90 fL (79-100) Mean Corpuscular Hemoglobin 31 pg (25-35) 32 pg (25-35) Mean Corpuscular Hemoglobin Concent 35 g/dL (31-37) 36 g/dL (31-37) Red Cell Distribution Width 13.4 % (11.5-14.5) 12.9 % (11.5-14.5) Platelet Count 289 x10^3/uL (140-400) 254 x10^3/uL (140-400) Neutrophils (%) (Auto) 58 % (31-73) 24 % (31-73) Lymphocytes (%) (Auto) 35 % (24-48) 66 % (24-48) Monocytes (%) (Auto) 5 % (0-9) 7 % (0-9) Eosinophils (%) (Auto) 2 % (0-3) 3 % (0-3) Basophils (%) (Auto) 0 % (0-3) 1 % (0-3) Neutrophils # (Auto) 5.0 x10^3uL (1.8-7.7) 1.6 x10^3uL (1.8-7.7) Lymphocytes # (Auto) 3.0 x10^3/uL (1.0-4.8) 4.4 x10^3/uL (1.0-4.8) Monocytes # (Auto) 0.4 x10^3/uL (0.0-1.1) 0.5 x10^3/uL (0.0-1.1) Eosinophils # (Auto) 0.1 x10^3/uL (0.0-0.7) 0.2 x10^3/uL (0.0-0.7) Basophils # (Auto) 0.0 x10^3/uL (0.0-0.2) 0.0 x10^3/uL (0.0-0.2) Erythrocyte Sedimentation Rate 2 (0-25) Prothrombin Time 25.3 SEC (11.7-14.0) 21.7 SEC (11.7-14.0) Prothromb Time International Ratio 2.4 (0.8-1.1) 2.0 (0.8-1.1) Sodium Level 126 mmol/L (136-145) 127 mmol/L (136-145) Potassium Level 3.7 mmol/L (3.5-5.1) 3.2 mmol/L (3.5-5.1) Chloride Level 91 mmol/L (98-107) 91 mmol/L (98-107) Carbon Dioxide Level 31 mmol/L (21-32) 32 mmol/L (21-32) Anion Gap 4 (6-14) 4 (6-14) Blood Urea Nitrogen 14 mg/dL (7-20) 12 mg/dL (7-20) Creatinine 0.9 mg/dL (0.6-1.0) 0.8 mg/dL (0.6-1.0) Estimated GFR (Cockcroft-Gault) 64.1 73.4 Glucose Level 102 mg/dL (70-99) 82 mg/dL (70-99) Calcium Level 9.5 mg/dL (8.5-10.1) 8.7 mg/dL (8.5-10.1) Magnesium Level 2.1 mg/dL (1.8-2.4) Creatine Kinase 57 U/L (26-192) Creatine Kinase MB (Mass) 0.7 ng/mL (0.0-3.6) Creatine Kinase MB Relative Index % (0-4) Troponin I Quantitative < 0.017 ng/mL (0.000-0.055) Thyroid Stimulating Hormone (TSH) 1.054 uIU/mL (0.358-3.74) Urine Opiates Screen Pos (NEG) Urine Methadone Screen Neg (NEG) Urine Barbiturates Neg (NEG) Urine Phencyclidine Screen Neg (NEG) Urine Amphetamine/Methamphetamine Neg (NEG) Urine Benzodiazepines Screen Neg (NEG) Urine Cocaine Screen Neg (NEG) Urine Cannabinoids Screen Neg (NEG) Urine Ethyl Alcohol Neg (NEG) Laboratory Tests Test 01/08/18 16:00 01/08/18 16:47 01/09/18 04:00 White Blood Count 8.7 x10^3/uL (4.0-11.0) 6.8 x10^3/uL (4.0-11.0) Red Blood Count 4.82 x10^6/uL (3.50-5.40) 4.50 x10^6/uL (3.50-5.40) Hemoglobin 15.1 g/dL (12.0-15.5) 14.3 g/dL (12.0-15.5) Hematocrit 43.5 % (36.0-47.0) 40.3 % (36.0-47.0) Mean Corpuscular Volume 90 fL (79-100) 90 fL (79-100) Mean Corpuscular Hemoglobin 31 pg (25-35) 32 pg (25-35) Mean Corpuscular Hemoglobin Concent 35 g/dL (31-37) 36 g/dL (31-37) Red Cell Distribution Width 13.4 % (11.5-14.5) 12.9 % (11.5-14.5) Platelet Count 289 x10^3/uL (140-400) 254 x10^3/uL (140-400) Neutrophils (%) (Auto) 58 % (31-73) 24 % (31-73) Lymphocytes (%) (Auto) 35 % (24-48) 66 % (24-48) Monocytes (%) (Auto) 5 % (0-9) 7 % (0-9) Eosinophils (%) (Auto) 2 % (0-3) 3 % (0-3) Basophils (%) (Auto) 0 % (0-3) 1 % (0-3) Neutrophils # (Auto) 5.0 x10^3uL (1.8-7.7) 1.6 x10^3uL (1.8-7.7) Lymphocytes # (Auto) 3.0 x10^3/uL (1.0-4.8) 4.4 x10^3/uL (1.0-4.8) Monocytes # (Auto) 0.4 x10^3/uL (0.0-1.1) 0.5 x10^3/uL (0.0-1.1) Eosinophils # (Auto) 0.1 x10^3/uL (0.0-0.7) 0.2 x10^3/uL (0.0-0.7) Basophils # (Auto) 0.0 x10^3/uL (0.0-0.2) 0.0 x10^3/uL (0.0-0.2) Erythrocyte Sedimentation Rate 2 (0-25) Prothrombin Time 25.3 SEC (11.7-14.0) 21.7 SEC (11.7-14.0) Prothromb Time International Ratio 2.4 (0.8-1.1) 2.0 (0.8-1.1) Sodium Level 126 mmol/L (136-145) 127 mmol/L (136-145) Potassium Level 3.7 mmol/L (3.5-5.1) 3.2 mmol/L (3.5-5.1) Chloride Level 91 mmol/L (98-107) 91 mmol/L (98-107) Carbon Dioxide Level 31 mmol/L (21-32) 32 mmol/L (21-32) Anion Gap 4 (6-14) 4 (6-14) Blood Urea Nitrogen 14 mg/dL (7-20) 12 mg/dL (7-20) Creatinine 0.9 mg/dL (0.6-1.0) 0.8 mg/dL (0.6-1.0) Estimated GFR (Cockcroft-Gault) 64.1 73.4 Glucose Level 102 mg/dL (70-99) 82 mg/dL (70-99) Calcium Level 9.5 mg/dL (8.5-10.1) 8.7 mg/dL (8.5-10.1) Magnesium Level 2.1 mg/dL (1.8-2.4) Creatine Kinase 57 U/L (26-192) Creatine Kinase MB (Mass) 0.7 ng/mL (0.0-3.6) Creatine Kinase MB Relative Index % (0-4) Troponin I Quantitative < 0.017 ng/mL (0.000-0.055) Thyroid Stimulating Hormone (TSH) 1.054 uIU/mL (0.358-3.74) Urine Opiates Screen Pos (NEG) Urine Methadone Screen Neg (NEG) Urine Barbiturates Neg (NEG) Urine Phencyclidine Screen Neg (NEG) Urine Amphetamine/Methamphetamine Neg (NEG) Urine Benzodiazepines Screen Neg (NEG) Urine Cocaine Screen Neg (NEG) Urine Cannabinoids Screen Neg (NEG) Urine Ethyl Alcohol Neg (NEG) Review All relevant outside records, renal labs, imaging studies, telemetry/EKG's were reviewed. Images Images CT scan of her head on arrival IMPRESSION: No acute intracranial process. CJ WIGGINS MD Jan 09, 2018 13:24
--- NOTE | 2018-01-09 13:56 | PDOC ---
PROGRESS NOTES Chief Complaint Chief Complaint chest pain, need to rule out unstable angina hyponatremia, 2/2 diuretics and low po intake hypokalemia, 2/2 diuretics likely headache , likely tension headache h/o scalp AVM h/o hypercoagulopathy with dvt, on coumadin and IVC filter likely copd with tobaccoism HTN bl leg pain on high dose morphine plan: card, neuro consulted, head CT neg hold chlothalidone, hold amlodipine, cont metoprolol given low side bp cont high dose morphine for chronic bl leg pain with dvt MPI today echo EF 55% labs today INR daily, cont warfarin check cE, TSH neg. History of Present Illness History of Present Illness ROS: no fever, chills,sob or chest pain very po intake for a few months tension headache neg head CT still low na, K Vitals Vitals Vital Signs Date Time Temp Pulse Resp B/P (MAP) Pulse Ox O2 Delivery O2 Flow Rate FiO2 01/09/18 11:00 97.9 74 90/58 (69) 93 Room Air 97.9 01/09/18 09:52 18 Physical Exam General: Alert, Oriented X3, Cooperative Heart: Regular rate, Normal S1, Normal S2 Lungs: Clear Abdomen: Normal bowel sounds, Soft Extremities: No clubbing, No cyanosis Skin: No rashes Labs LABS Laboratory Tests Test 01/08/18 16:00 01/08/18 16:47 01/09/18 04:00 01/09/18 11:00 White Blood Count 8.7 x10^3/uL (4.0-11.0) 6.8 x10^3/uL (4.0-11.0) Red Blood Count 4.82 x10^6/uL (3.50-5.40) 4.50 x10^6/uL (3.50-5.40) Hemoglobin 15.1 g/dL (12.0-15.5) 14.3 g/dL (12.0-15.5) Hematocrit 43.5 % (36.0-47.0) 40.3 % (36.0-47.0) Mean Corpuscular Volume 90 fL (79-100) 90 fL (79-100) Mean Corpuscular Hemoglobin 31 pg (25-35) 32 pg (25-35) Mean Corpuscular Hemoglobin Concent 35 g/dL (31-37) 36 g/dL (31-37) Red Cell Distribution Width 13.4 % (11.5-14.5) 12.9 % (11.5-14.5) Platelet Count 289 x10^3/uL (140-400) 254 x10^3/uL (140-400) Neutrophils (%) (Auto) 58 % (31-73) 24 % (31-73) Lymphocytes (%) (Auto) 35 % (24-48) 66 % (24-48) Monocytes (%) (Auto) 5 % (0-9) 7 % (0-9) Eosinophils (%) (Auto) 2 % (0-3) 3 % (0-3) Basophils (%) (Auto) 0 % (0-3) 1 % (0-3) Neutrophils # (Auto) 5.0 x10^3uL (1.8-7.7) 1.6 x10^3uL (1.8-7.7) Lymphocytes # (Auto) 3.0 x10^3/uL (1.0-4.8) 4.4 x10^3/uL (1.0-4.8) Monocytes # (Auto) 0.4 x10^3/uL (0.0-1.1) 0.5 x10^3/uL (0.0-1.1) Eosinophils # (Auto) 0.1 x10^3/uL (0.0-0.7) 0.2 x10^3/uL (0.0-0.7) Basophils # (Auto) 0.0 x10^3/uL (0.0-0.2) 0.0 x10^3/uL (0.0-0.2) Erythrocyte Sedimentation Rate 2 (0-25) Prothrombin Time 25.3 SEC (11.7-14.0) 21.7 SEC (11.7-14.0) Prothromb Time International Ratio 2.4 (0.8-1.1) 2.0 (0.8-1.1) Sodium Level 126 mmol/L (136-145) 127 mmol/L (136-145) Potassium Level 3.7 mmol/L (3.5-5.1) 3.2 mmol/L (3.5-5.1) Chloride Level 91 mmol/L (98-107) 91 mmol/L (98-107) Carbon Dioxide Level 31 mmol/L (21-32) 32 mmol/L (21-32) Anion Gap 4 (6-14) 4 (6-14) Blood Urea Nitrogen 14 mg/dL (7-20) 12 mg/dL (7-20) Creatinine 0.9 mg/dL (0.6-1.0) 0.8 mg/dL (0.6-1.0) Estimated GFR (Cockcroft-Gault) 64.1 73.4 Glucose Level 102 mg/dL (70-99) 82 mg/dL (70-99) Calcium Level 9.5 mg/dL (8.5-10.1) 8.7 mg/dL (8.5-10.1) Magnesium Level 2.1 mg/dL (1.8-2.4) Creatine Kinase 57 U/L (26-192) Creatine Kinase MB (Mass) 0.7 ng/mL (0.0-3.6) Creatine Kinase MB Relative Index % (0-4) Troponin I Quantitative < 0.017 ng/mL (0.000-0.055) Thyroid Stimulating Hormone (TSH) 1.054 uIU/mL (0.358-3.74) Urine Opiates Screen Pos (NEG) Urine Methadone Screen Neg (NEG) Urine Barbiturates Neg (NEG) Urine Phencyclidine Screen Neg (NEG) Urine Amphetamine/Methamphetamine Neg (NEG) Urine Benzodiazepines Screen Neg (NEG) Urine Cocaine Screen Neg (NEG) Urine Cannabinoids Screen Neg (NEG) Urine Ethyl Alcohol Neg (NEG) Uric Acid 3.3 mg/dL (2.6-6.0) Comment Review of Relevant I have reviewed the following items annie (where applicable) has been applied. Labs Laboratory Tests Test 01/08/18 16:00 01/08/18 16:47 01/09/18 04:00 01/09/18 11:00 White Blood Count 8.7 x10^3/uL (4.0-11.0) 6.8 x10^3/uL (4.0-11.0) Red Blood Count 4.82 x10^6/uL (3.50-5.40) 4.50 x10^6/uL (3.50-5.40) Hemoglobin 15.1 g/dL (12.0-15.5) 14.3 g/dL (12.0-15.5) Hematocrit 43.5 % (36.0-47.0) 40.3 % (36.0-47.0) Mean Corpuscular Volume 90 fL (79-100) 90 fL (79-100) Mean Corpuscular Hemoglobin 31 pg (25-35) 32 pg (25-35) Mean Corpuscular Hemoglobin Concent 35 g/dL (31-37) 36 g/dL (31-37) Red Cell Distribution Width 13.4 % (11.5-14.5) 12.9 % (11.5-14.5) Platelet Count 289 x10^3/uL (140-400) 254 x10^3/uL (140-400) Neutrophils (%) (Auto) 58 % (31-73) 24 % (31-73) Lymphocytes (%) (Auto) 35 % (24-48) 66 % (24-48) Monocytes (%) (Auto) 5 % (0-9) 7 % (0-9) Eosinophils (%) (Auto) 2 % (0-3) 3 % (0-3) Basophils (%) (Auto) 0 % (0-3) 1 % (0-3) Neutrophils # (Auto) 5.0 x10^3uL (1.8-7.7) 1.6 x10^3uL (1.8-7.7) Lymphocytes # (Auto) 3.0 x10^3/uL (1.0-4.8) 4.4 x10^3/uL (1.0-4.8) Monocytes # (Auto) 0.4 x10^3/uL (0.0-1.1) 0.5 x10^3/uL (0.0-1.1) Eosinophils # (Auto) 0.1 x10^3/uL (0.0-0.7) 0.2 x10^3/uL (0.0-0.7) Basophils # (Auto) 0.0 x10^3/uL (0.0-0.2) 0.0 x10^3/uL (0.0-0.2) Erythrocyte Sedimentation Rate 2 (0-25) Prothrombin Time 25.3 SEC (11.7-14.0) 21.7 SEC (11.7-14.0) Prothromb Time International Ratio 2.4 (0.8-1.1) 2.0 (0.8-1.1) Sodium Level 126 mmol/L (136-145) 127 mmol/L (136-145) Potassium Level 3.7 mmol/L (3.5-5.1) 3.2 mmol/L (3.5-5.1) Chloride Level 91 mmol/L (98-107) 91 mmol/L (98-107) Carbon Dioxide Level 31 mmol/L (21-32) 32 mmol/L (21-32) Anion Gap 4 (6-14) 4 (6-14) Blood Urea Nitrogen 14 mg/dL (7-20) 12 mg/dL (7-20) Creatinine 0.9 mg/dL (0.6-1.0) 0.8 mg/dL (0.6-1.0) Estimated GFR (Cockcroft-Gault) 64.1 73.4 Glucose Level 102 mg/dL (70-99) 82 mg/dL (70-99) Calcium Level 9.5 mg/dL (8.5-10.1) 8.7 mg/dL (8.5-10.1) Magnesium Level 2.1 mg/dL (1.8-2.4) Creatine Kinase 57 U/L (26-192) Creatine Kinase MB (Mass) 0.7 ng/mL (0.0-3.6) Creatine Kinase MB Relative Index % (0-4) Troponin I Quantitative < 0.017 ng/mL (0.000-0.055) Thyroid Stimulating Hormone (TSH) 1.054 uIU/mL (0.358-3.74) Urine Opiates Screen Pos (NEG) Urine Methadone Screen Neg (NEG) Urine Barbiturates Neg (NEG) Urine Phencyclidine Screen Neg (NEG) Urine Amphetamine/Methamphetamine Neg (NEG) Urine Benzodiazepines Screen Neg (NEG) Urine Cocaine Screen Neg (NEG) Urine Cannabinoids Screen Neg (NEG) Urine Ethyl Alcohol Neg (NEG) Uric Acid 3.3 mg/dL (2.6-6.0) Laboratory Tests Test 01/08/18 16:00 01/08/18 16:47 01/09/18 04:00 01/09/18 11:00 White Blood Count 8.7 x10^3/uL (4.0-11.0) 6.8 x10^3/uL (4.0-11.0) Red Blood Count 4.82 x10^6/uL (3.50-5.40) 4.50 x10^6/uL (3.50-5.40) Hemoglobin 15.1 g/dL (12.0-15.5) 14.3 g/dL (12.0-15.5) Hematocrit 43.5 % (36.0-47.0) 40.3 % (36.0-47.0) Mean Corpuscular Volume 90 fL (79-100) 90 fL (79-100) Mean Corpuscular Hemoglobin 31 pg (25-35) 32 pg (25-35) Mean Corpuscular Hemoglobin Concent 35 g/dL (31-37) 36 g/dL (31-37) Red Cell Distribution Width 13.4 % (11.5-14.5) 12.9 % (11.5-14.5) Platelet Count 289 x10^3/uL (140-400) 254 x10^3/uL (140-400) Neutrophils (%) (Auto) 58 % (31-73) 24 % (31-73) Lymphocytes (%) (Auto) 35 % (24-48) 66 % (24-48) Monocytes (%) (Auto) 5 % (0-9) 7 % (0-9) Eosinophils (%) (Auto) 2 % (0-3) 3 % (0-3) Basophils (%) (Auto) 0 % (0-3) 1 % (0-3) Neutrophils # (Auto) 5.0 x10^3uL (1.8-7.7) 1.6 x10^3uL (1.8-7.7) Lymphocytes # (Auto) 3.0 x10^3/uL (1.0-4.8) 4.4 x10^3/uL (1.0-4.8) Monocytes # (Auto) 0.4 x10^3/uL (0.0-1.1) 0.5 x10^3/uL (0.0-1.1) Eosinophils # (Auto) 0.1 x10^3/uL (0.0-0.7) 0.2 x10^3/uL (0.0-0.7) Basophils # (Auto) 0.0 x10^3/uL (0.0-0.2) 0.0 x10^3/uL (0.0-0.2) Erythrocyte Sedimentation Rate 2 (0-25) Prothrombin Time 25.3 SEC (11.7-14.0) 21.7 SEC (11.7-14.0) Prothromb Time International Ratio 2.4 (0.8-1.1) 2.0 (0.8-1.1) Sodium Level 126 mmol/L (136-145) 127 mmol/L (136-145) Potassium Level 3.7 mmol/L (3.5-5.1) 3.2 mmol/L (3.5-5.1) Chloride Level 91 mmol/L (98-107) 91 mmol/L (98-107) Carbon Dioxide Level 31 mmol/L (21-32) 32 mmol/L (21-32) Anion Gap 4 (6-14) 4 (6-14) Blood Urea Nitrogen 14 mg/dL (7-20) 12 mg/dL (7-20) Creatinine 0.9 mg/dL (0.6-1.0) 0.8 mg/dL (0.6-1.0) Estimated GFR (Cockcroft-Gault) 64.1 73.4 Glucose Level 102 mg/dL (70-99) 82 mg/dL (70-99) Calcium Level 9.5 mg/dL (8.5-10.1) 8.7 mg/dL (8.5-10.1) Magnesium Level 2.1 mg/dL (1.8-2.4) Creatine Kinase 57 U/L (26-192) Creatine Kinase MB (Mass) 0.7 ng/mL (0.0-3.6) Creatine Kinase MB Relative Index % (0-4) Troponin I Quantitative < 0.017 ng/mL (0.000-0.055) Thyroid Stimulating Hormone (TSH) 1.054 uIU/mL (0.358-3.74) Urine Opiates Screen Pos (NEG) Urine Methadone Screen Neg (NEG) Urine Barbiturates Neg (NEG) Urine Phencyclidine Screen Neg (NEG) Urine Amphetamine/Methamphetamine Neg (NEG) Urine Benzodiazepines Screen Neg (NEG) Urine Cocaine Screen Neg (NEG) Urine Cannabinoids Screen Neg (NEG) Urine Ethyl Alcohol Neg (NEG) Uric Acid 3.3 mg/dL (2.6-6.0) Medications Current Medications Acetaminophen (Tylenol) 500 mg PRN Q6HRS PRN PO MILD PAIN / TEMP Last administered on 01/09/18at 11:11; Start 01/08/18 at 14:15; Stop 01/09/18 at 12:59 ; Status DC Metoprolol Succinate (Toprol Xl) 50 mg DAILYBFRSUP PO ; Start 01/08/18 at 17:00 ; Stop 01/08/18 at 17:00; Status DC Morphine Sulfate (Ms Contin) 60 mg [id number] PO Last administered on 01/09/18at 05: 52; Start 01/08/18 at 18:00 Chlorthalidone (Thalitone) 25 mg DAILY PO ; Start 01/09/18 at 09:00; Status Cancel Ondansetron HCl (Zofran) 4 mg PRN Q8HRS PRN IV NAUSEA/VOMITING; Start 01/08/18 at 14:15; Stop 01/08/18 at 14:39; Status DC Potassium Chloride (Klor-Con) 20 meq TIDWMEALS PO Last administered on at 12:58; Start 01/08/18 at 17:00 Spironolactone (Aldactone) 25 mg DAILY PO ; Start 01/09/18 at 09:00; Stop at 09:00; Status DC Warfarin Sodium (Coumadin Per Pharmacy) 1 each PRN DAILY PRN MC SEE COMMENTS Last administered on 01/09/18at 12:41; Start 01/08/18 at 14:15 Zolpidem Tartrate (Ambien) 5 mg QHS PRN PO INSOMNIA; Start 01/08/18 at 14:15; Status Cancel Amlodipine Besylate (Norvasc) 5 mg DAILYWSUP PO ; Start 01/08/18 at 17:00; Stop 01/08/18 at 17:00; Status DC Clonazepam (KlonoPIN) 0.5 mg PRN DAILY PRN PO ANXIETY / AGITATION; Start at 14:15 Clonazepam (KlonoPIN) 1 mg PRN QHS PRN PO ANXIETY / AGITATION Last administered on 01/08/18at 20:40; Start 01/08/18 at 14:15 Ondansetron HCl (Zofran) 4 mg PRN Q6HRS PRN IV NAUSEA/VOMITING 1st choice; Start 01/08/18 at 14:30 Prochlorperazine Edisylate (Compazine) 10 mg PRN Q6HRS PRN IV NAUSEA/VOMITING, 2nd choice; Start 01/08/18 at 14:30 Al Hydroxide/Mg Hydroxide (Mylanta Plus Xs) 30 ml PRN Q3HRS PRN PO HEARTBURN / GAS; Start 01/08/18 at 14:30 Calcium Carbonate/ Glycine (Tums) 500 mg PRN Q3HRS PRN PO UPSET STOMACH; Start 01/08/18 at 14:30 Zolpidem Tartrate (Ambien) 5 mg PRN QHS PRN PO INSOMNIA, MAY REPEAT IN 1HR Last administered on 01/08/18at 20:40; Start 01/08/18 at 14:30 Oxycodone HCl (Roxicodone) 5 mg PRN Q3HRS PRN PO BREAKTHROUGH PAIN; Start 01/08 at 14:30 Morphine Sulfate (Morphine Sulfate) 1 mg PRN Q1HR PRN IV PAIN; Start 01/08/18 at 14:30 Acetaminophen (Tylenol) 650 mg PRN Q6HRS PRN PO Headaches, Temp > 101.5F Last administered on 01/09/18at 11:11; Start 01/08/18 at 14:30 Ibuprofen (Motrin) 400 mg PRN Q6HRS PRN PO MILD PAIN; Start 01/08/18 at 14:30 Magnesium Hydroxide (Milk Of Magnesia) 2,400 mg PRN Q12HR PRN PO CONSTIPATION; Start 01/08/18 at 14:30 Amlodipine Besylate (Norvasc) 5 mg DAILY PO ; Start 01/09/18 at 09:00; Stop at 09:00; Status DC Metoprolol Succinate (Toprol Xl) 25 mg DAILYBFRSUP PO ; Start 01/09/18 at 17:00 Hydralazine HCl (Apresoline) 25 mg PRN Q6HRS PRN PO ELEVATED BP, SEE COMMENTS; Start 01/08/18 at 15:30 Amlodipine Besylate (Norvasc) 5 mg DAILYWSUP PO Last administered on 01/08/18at 19:38; Start 01/08/18 at 19:30; Stop 01/09/18 at 08:32; Status DC Warfarin Sodium (Coumadin) 5 mg 1X WARF ONCE PO Last administered on at 19:38; Start 01/08/18 at 19:24; Stop 01/08/18 at 19:25; Status DC Non-Formulary Medication (Amoxapine ) 50 mg QHS PO Last administered on at 20:40; Start 01/08/18 at 21:00 Sodium Chloride 1,000 ml @ 75 mls/hr [id number] IV Last administered on at 11:11; Start 01/09/18 at 08:30 Potassium Chloride/Water 50 ml @ 50 mls/hr 1X ONCE IV Last administered on at 11:12; Start 01/09/18 at 08:30; Stop 01/09/18 at 09:29; Status DC Regadenoson (Lexiscan) 0.4 mg 1X ONCE IV Last administered on 01/09/18at 09:44 ; Start 01/09/18 at 09:30; Stop 01/09/18 at 09:31; Status DC Warfarin Sodium (Coumadin) 8 mg 1X WARF ONCE PO ; Start 01/09/18 at 16:00; Stop 01/09/18 at 16:01 Active Scripts Active Reported Zolpidem Tartrate 10 Mg Tablet 1 Tab PO QHS Morphine Sulfate 30 Mg Tablet 2 Tab PO [id number] Chlorthalidone 25 Mg Tablet 1 Tab PO DAILY Clonazepam 1 Mg Tablet 1 Tab PO QHS Clonazepam 0.5 Mg Tablet 1 Tab PO DAILY08 K-Tab ER (Potassium Chloride) 20 Meq Tablet.er 20 Meq PO TID Toprol Xl (Metoprolol Succinate) 50 Mg Tab.er.24h 1 Tab PO DAILYWSUP Warfarin Sodium 5 Mg Tablet 1 Tab PO DAILY Amoxapine 50 Mg Tablet 50 Mg PO QHS Amlodipine Besylate 5 Mg Tablet 5 Mg PO DAILY Vitals/I & O Vital Sign - Last 24 Hours 01/08/18 01/08/18 01/08/18 01/08/18 15:00 16:53 17:36 19:34 Temp 98.8 98.2 98.8 98.2 Pulse 78 69 Resp 18 16 B/P (MAP) 124/76 (92) 115/72 (86) Pulse Ox 98 98 98 O2 Delivery Room Air Room Air Room Air Room Air 01/08/18 01/08/18 01/08/18 01/09/18 19:35 19:38 22:07 03:00 Temp 97.8 98.4 97.8 98.4 Pulse 69 81 65 Resp 16 16 B/P (MAP) 115/72 108/66 (80) 92/61 (71) Pulse Ox 96 96 O2 Delivery Room Air Room Air Room Air 01/09/18 01/09/18 01/09/18 01/09/18 05:52 07:00 08:00 09:52 Temp 98.0 98.0 Pulse 65 Resp 16 20 18 B/P (MAP) 86/54 (65) Pulse Ox 93 95 95 O2 Delivery Room Air Room Air Room Air Room Air 01/09/18 11:00 Temp 97.9 97.9 Pulse 74 B/P (MAP) 90/58 (69) Pulse Ox 93 O2 Delivery Room Air Intake and Output 01/08/18 01/08/18 01/09/18 15:00 23:00 07:00 Intake Total 650 ml 400 ml Output Total 800 ml 500 ml Balance -150 ml -100 ml PHYLICIA ALCANTARA MD Jan 09, 2018 13:56
[2018-01-09 15:43] VITALS: BP 123/77
[2018-01-09] MEDS ORDERED: WARFARIN 4 MG TABLET. PO ONE (16:00)
[2018-01-09] MEDS: METOPROLOL SUCC 24HR ER 25 MG TAB.ER.24H. PO SCH (17:04)
[2018-01-09 19:00] VITALS: BP 108/69
--- NOTE | 2018-01-09 20:44 | RAD ---
EXAM: Abdomen sonogram. HISTORY: Liver failure. TECHNIQUE: Sonographic imaging of the abdomen was performed. COMPARISON: None. FINDINGS: The liver is normal in size. There is slightly heterogeneous hepatic echotexture and echogenicity. No focal hepatic lesion is seen. The gallbladder is surgically absent. The common bile duct is normal in caliber. The right kidney measures 10.6 cm [id number]. Left kidney measures 11.6 cm [id number]. There is mild right hydronephrosis and hydroureter. The spleen is upper normal in size. The pancreas, aorta and inferior vena cava are partially obscured due to bowel gas and body habitus. IMPRESSION: 1. Slightly heterogeneous hepatic echotexture and echogenicity. No focal hepatic lesion is seen. There is no convincing steatosis. 2. Mild right hydronephrosis and hydroureter. 3. Cholecystectomy. 4. Obscured midline structures due to bowel gas and body habitus. Electronically signed by: Malathi Rodrigez MD (01/09/2018 8:41 PM) [facility]
[2018-01-09] MEDS: ZOLPIDEM 5 MG TABLET. PO PRN (20:47)
[2018-01-09] MEDS: AMOXAPINE 50 MG PO SCH (20:47)
[2018-01-09] MEDS: clonazePAM 1 MG TABLET PO PRN (20:47)
[2018-01-09 23:00] VITALS: BP 91/59
[2018-01-10 03:10] VITALS: BP 107/59
[2018-01-10] MEDS: IV NORMAL SALINE 1000ML BAG 1,000 ML IV SCH ×2 (05:40→18:02)
[2018-01-10] MEDS: MORPHINE ER 30 MG TABLET.ER PO SCH ×2 (05:42→18:03)
[2018-01-10 07:14] LABS: POTASSIUM UR 43.4 mmol/L (Not Estab.)
[2018-01-10 07:36] VITALS: BP 108/60
[2018-01-10 08:25] LABS: BASO % 1 % (0-3); EOS # 0.2 x10^3/uL (0.0-0.7); EOS % 3 % (0-3); HEMATOCRIT 40.8 % (36.0-47.0); HEMOGLOBIN 14.3 g/dL (12.0-15.5); LYMPH # 3.1 x10^3/uL (1.0-4.8); LYMPH % 58 % (24-48); MEAN CORPUSCULAR HEMOGLOBIN 32 pg (25-35); MEAN CORPUSCULAR HGB CONC 35 g/dL (31-37); MEAN CORPUSCULAR VOLUME 91 fL (79-100); MONO # 0.4 x10^3/uL (0.0-1.1); MONO % 8 % (0-9); NEUT # 1.7 x10^3uL (1.8-7.7); NEUT % 31 % (31-73); PLATELET COUNT 274 x10^3/uL (140-400); RED CELL DISTRIBUTION WIDTH 13.2 % (11.5-14.5); WHITE BLOOD COUNT 5.4 x10^3/uL (4.0-11.0)
[2018-01-10 08:32] LABS: PROTHROMBIN TIME PATIENT 23.1 SEC (11.7-14.0)
[2018-01-10 08:54] LABS: CALCIUM 8.5 mg/dL (8.5-10.1); CREATININE 0.8 mg/dL (0.6-1.0); GFR 73.4; POTASSIUM 3.7 mmol/L (3.5-5.1)
[2018-01-10 11:00] VITALS: BP 107/65
--- NOTE | 2018-01-10 11:02 | RAD ---
EXAM: Chest, 2 views. HISTORY: Chest pain. COMPARISON: 01/10/2006 FINDINGS: Frontal and lateral views of the chest are obtained. There is no infiltrate, pleural effusion or pneumothorax. The heart is normal in size. There are multiple calcified granulomas. There is an IVC filter overlying the midabdomen to the right of midline. There are cholecystectomy clips. IMPRESSION: No acute pulmonary finding. Electronically signed by: Malathi Rodrigez MD (01/10/2018 10:59 AM) [facility]
--- NOTE | 2018-01-10 11:13 | PDOC ---
SUBJECTIVE ROS Low up for "persistent hyponatremia, hypokalemia" Patient is feeling somewhat better today. CVS: no Orthopnea, no CP RESP: no SOB, no FINLEY GI: no Nausea, no Vomiting : no Dysuria, no Urgency OBJECTIVE Vital Signs Vital Signs Date Time Temp Pulse Resp B/P (MAP) Pulse Ox O2 Delivery O2 Flow Rate FiO2 01/10/18 11:00 97.9 67 17 107/65 (79) 98 Room Air 97.9 I & 0 Intake and Output 01/10/18 07:00 Intake Total 1740 ml Output Total 1100 ml Balance 640 ml Intake Oral 840 ml IV Total 900 ml Output Urine Total 1100 ml # Bowel Movements 1 PHYSICAL EXAM Physical Exam General Appearance: Awake no Alert Oriented x 3 In no Distress Eyes: VIsion Unchanged Conjunctiva Normal EN: No EN Drainage Mucous Memb. moist Neck: no JVD no JVP Supple no Thyromegaly CVS: S1 S2 ? Murmur No Gallop No Rub no Edema Resp: no Rales no Rhonchi no Acc. Muscle use GI: BAS +ve NO Bruit Non Tender Non Distended : no CVA tenderness; no Suprapubic Tenderness Assessment & Plan: Hyponatremia: Slightly improved today Unclear etiology. Most likely cause is her chlorthalidone. Her by mouth intake is reportedly poor over the last few days and this may have contributed to it also. Her response to normal saline also indicates some level of intravascular volume depletion also. Chest x-ray reportedly clear. Await cortisol levels. Urine sodium was less than 60 (unclear significance of this). Urine osmolality is pending. Orthostasis are not available Hypokalemia now replaced adequately watch trend. May need to add potassium to IV normal saline Malar erythema with spider angiomatous overlying her chest wall: Liver sonogram nonrevealing per se at this time HydroNephrosis: We'll check CT scan of abdomen and pelvis Poor by mouth intake: Currently improving COMMENT/RELEVANT DATA Meds Current Medications Medications (Trade) Dose Ordered Sig/Gerry Start Time Stop Time Status Last Admin Dose Admin Acetaminophen (Tylenol) 650 mg PRN Q6HRS PRN 01/08/18 14:30 01/09/18 11:11 650 MG Al Hydroxide/Mg Hydroxide (Mylanta Plus Xs) 30 ml PRN Q3HRS PRN 01/08/18 14:30 Amlodipine Besylate (Norvasc) 5 mg DAILYWSUP 01/08/18 19:30 01/09/18 08:32 DC 01/08/18 19:38 5 MG Calcium Carbonate/ Glycine (Tums) 500 mg PRN Q3HRS PRN 01/08/18 14:30 Chlorthalidone (Thalitone) 25 mg DAILY 01/09/18 09:00 Cancel Clonazepam (KlonoPIN) 1 mg PRN QHS PRN 01/08/18 14:15 01/09/18 20:47 1 MG Hydralazine HCl (Apresoline) 25 mg PRN Q6HRS PRN 01/08/18 15:30 Ibuprofen (Motrin) 400 mg PRN Q6HRS PRN 01/08/18 14:30 01/09/18 20:58 400 MG Magnesium Hydroxide (Milk Of Magnesia) 2,400 mg PRN Q12HR PRN 01/08/18 14:30 Metoprolol Succinate (Toprol Xl) 25 mg DAILYBFRSUP 01/09/18 17:00 01/09/18 17:04 25 MG Morphine Sulfate (Morphine Sulfate) 1 mg PRN Q1HR PRN 01/08/18 14:30 Morphine Sulfate (Ms Contin) 60 mg [id number] 01/08/18 18:00 01/10/18 05:42 60 MG Non-Formulary Medication (Amoxapine ) 50 mg QHS 01/08/18 21:00 01/09/18 20:47 50 MG Ondansetron HCl (Zofran) 4 mg PRN Q6HRS PRN 01/08/18 14:30 Oxycodone HCl (Roxicodone) 5 mg PRN Q3HRS PRN 01/08/18 14:30 Potassium Chloride/Water 50 ml @ 50 mls/hr 1X ONCE 01/09/18 08:30 01/09/18 09:29 DC 01/09/18 11:12 50 MLS/HR Potassium Chloride (Klor-Con) 20 meq TIDWMEALS 01/08/18 17:00 01/09/18 17:03 20 MEQ Prochlorperazine Edisylate (Compazine) 10 mg PRN Q6HRS PRN 01/08/18 14:30 Regadenoson (Lexiscan) 0.4 mg 1X ONCE 01/09/18 09:30 01/09/18 09:31 DC 01/09/18 09:44 0.4 MG Sodium Chloride 1,000 ml @ 75 mls/hr [id number] 01/09/18 08:30 01/10/18 05:40 75 MLS/HR Spironolactone (Aldactone) 25 mg DAILY 01/09/18 09:00 01/09/18 09:00 DC Warfarin Sodium (Coumadin Per Pharmacy) 1 each PRN DAILY PRN 01/08/18 14:15 01/09/18 12:41 1 EACH Warfarin Sodium (Coumadin) 8 mg 1X WARF ONCE 01/09/18 16:00 01/09/18 16:01 DC 01/09/18 17:02 8 MG Zolpidem Tartrate (Ambien) 5 mg PRN QHS PRN 01/08/18 14:30 01/09/18 20:47 5 MG Lab Laboratory Tests Test 01/10/18 07:40 White Blood Count 5.4 x10^3/uL (4.0-11.0) Red Blood Count 4.50 x10^6/uL (3.50-5.40) Hemoglobin 14.3 g/dL (12.0-15.5) Hematocrit 40.8 % (36.0-47.0) Mean Corpuscular Volume 91 fL (79-100) Mean Corpuscular Hemoglobin 32 pg (25-35) Mean Corpuscular Hemoglobin Concent 35 g/dL (31-37) Red Cell Distribution Width 13.2 % (11.5-14.5) Platelet Count 274 x10^3/uL (140-400) Neutrophils (%) (Auto) 31 % (31-73) Lymphocytes (%) (Auto) 58 % (24-48) Monocytes (%) (Auto) 8 % (0-9) Eosinophils (%) (Auto) 3 % (0-3) Basophils (%) (Auto) 1 % (0-3) Neutrophils # (Auto) 1.7 x10^3uL (1.8-7.7) Lymphocytes # (Auto) 3.1 x10^3/uL (1.0-4.8) Monocytes # (Auto) 0.4 x10^3/uL (0.0-1.1) Eosinophils # (Auto) 0.2 x10^3/uL (0.0-0.7) Basophils # (Auto) 0.0 x10^3/uL (0.0-0.2) Prothrombin Time 23.1 SEC (11.7-14.0) Prothromb Time International Ratio 2.1 (0.8-1.1) Sodium Level 130 mmol/L (136-145) Potassium Level 3.7 mmol/L (3.5-5.1) Chloride Level 97 mmol/L (98-107) Carbon Dioxide Level 29 mmol/L (21-32) Anion Gap 4 (6-14) Blood Urea Nitrogen 13 mg/dL (7-20) Creatinine 0.8 mg/dL (0.6-1.0) Estimated GFR (Cockcroft-Gault) 73.4 Glucose Level 82 mg/dL (70-99) Calcium Level 8.5 mg/dL (8.5-10.1) Results All relevant outside records, renal labs, imaging studies, telemetry/EKG's were reviewed. Other CXR: FINDINGS: Frontal and lateral views of the chest are obtained. There is no infiltrate, pleural effusion or pneumothorax. The heart is normal in size. There are multiple calcified granulomas. There is an IVC filter overlying the midabdomen to the right of midline. There are cholecystectomy clips. IMPRESSION: No acute pulmonary finding. Renal US: IMPRESSION: 1. Slightly heterogeneous hepatic echotexture and echogenicity. No focal hepatic lesion is seen. There is no convincing steatosis. 2. Mild right hydronephrosis and hydroureter. 3. Cholecystectomy. 4. Obscured midline structures due to bowel gas and body habitus. ECHO: The left ventricular systolic function is normal and the ejection fraction is within normal range. Ef 55% There is normal LV segmental wall motion. CJ WIGGINS MD Jan 10, 2018 11:13
[2018-01-10] MEDS: POTASSIUM CHLORIDE 20 MEQ TABLET.ER. PO SCH ×3 (11:50→18:03)
[2018-01-10] MEDS: ACETAMINOPHEN 325 MG TABLET. PO PRN (12:00)
[2018-01-10 14:39] VITALS: BP 110/66
[2018-01-10] MEDS ORDERED: WARFARIN 4 MG TABLET. PO ONE (16:00)
[2018-01-10] MEDS ORDERED: WARFARIN 6 MG TABLET. PO ONE (16:00)
[2018-01-10] MEDS ORDERED: IOHEXOL 240 MG/ML 50ML VIAL. PO ONE (16:30)
[2018-01-10] MEDS ORDERED: IOHEXOL 300 MG/ML 100ML VIAL. IV ONE (16:30)
[2018-01-10] MEDS: METOPROLOL SUCC 24HR ER 25 MG TAB.ER.24H. PO SCH (18:04)
[2018-01-10 19:28] VITALS: BP 110/73
[2018-01-10] MEDS: AMOXAPINE 50 MG PO SCH (20:52)
[2018-01-10] MEDS: clonazePAM 1 MG TABLET PO PRN (20:58)
[2018-01-10] MEDS: ZOLPIDEM 5 MG TABLET. PO PRN (20:59)
[2018-01-10 22:22] VITALS: BP 119/78
[2018-01-10 23:32] LABS: BILIRUBIN,URINE NEGATIVE (NEG); CLARITY,URINE CLEAR; COLOR,URINE YELLOW; NITRITE,URINE NEGATIVE (NEG); PH,URINE 7.5; PROTEIN,URINE NEGATIVE (NEG-TRACE)
[2018-01-10 23:42] LABS: BACTERIA,URINE FEW /HPF (0-FEW); SQUAMOUS EPITHELIAL CELL,UR FEW /LPF
[2018-01-11] MEDS: IV NORMAL SALINE 1000ML BAG 1,000 ML IV SCH ×2 (00:30→06:06)
[2018-01-11 03:48] VITALS: BP 96/53
[2018-01-11 05:12] LABS: PROTHROMBIN TIME PATIENT 25.6 SEC (11.7-14.0)
[2018-01-11 05:37] LABS: POTASSIUM 3.8 mmol/L (3.5-5.1)
[2018-01-11] MEDS: MORPHINE ER 30 MG TABLET.ER PO SCH (06:04)
[2018-01-11 07:18] VITALS: BP 108/71
[2018-01-11] MEDS: POTASSIUM CHLORIDE 20 MEQ TABLET.ER. PO SCH ×2 (08:25→11:39)
--- NOTE | 2018-01-11 08:25 | RAD ---
CT of the abdomen and pelvis with contrast, 01/10/2018: HISTORY: Liver failure, hydronephrosis Multidetector CT imaging was performed following oral and IV administration of contrast. There are multiple calcified granulomata in the lung bases. Coronary artery calcifications are present. The gallbladder is surgically absent. No hepatic mass or bile duct dilatation is seen. The pancreas is unremarkable. The spleen is of normal size. There is a mildly prominent extrarenal pelvis on the right. No definite hydronephrosis is seen. No renal mass is evident. The adrenal glands are unremarkable. An inferior vena cava filter is in place in an infrarenal location. A left common iliac venous stent is in place. There is moderate aortoiliac calcific plaquing. No abdominal or pelvic adenopathy is seen. The uterus is surgically absent. There is a moderate of stool in the colon. Several sigmoid diverticula are present. No paracolonic inflammatory process is seen. The small bowel loops are unremarkable. No free fluid or free air is evident in the abdomen or pelvis. There is extensive degenerative disc disease at L4-5. There is a mild anterolisthesis at L4-5 related to facet joint arthropathy. IMPRESSION: 1. Sigmoid diverticulosis. 2. An inferior vena cava filter and a left common iliac venous stent are in place. 3. Prominent right extrarenal pelvis. 4. No acute abdominal or pelvic abnormality is detected. PQRS Compliance Statement: One or more of the following individualized dose reduction techniques were utilized for this examination: 1. Automated exposure control 2. Adjustment of the mA and/or kV according to patient size 3. Use of iterative reconstruction technique Electronically signed by: Jf Shelley MD (01/11/2018 8:23 AM) [facility]
--- NOTE | 2018-01-11 09:19 | RAD ---
MR#: [id number] Date of Study: 01/09/2018 Ordering Physician: CIELO HERNANDEZ, Referring Physician: WENDY ENGEL Tech: RT Naye (R) (N) APPROVED REPORT Test Type: Pharmacological Stress Nurse/Tech: Ninoska Claudio RN Test Indications: chest pain/pressure Cardiac History: Hypertension,smoker Medications: See Electronic Medical Record Medical History: See Electronic Medical Record Resting ECG: SR with PVC's Resting Heart Rate: 84 bpm Resting Blood Pressure: 118/65mmHg Pretest Chest Pain: Typical angina Nurse/Tech Notes Irregular rate, S1, S2 with diminished lungs. Patient stated she is getting over pneumonia and hasn' t smoked in three days. Patient also stated that she feels like someone is sitting on her chest. Consent: The procedure was explained to the patient in lay terms. Informed consent was witnessed. Marco francis was entered into [employer]. History and Stress Test performed by Ninoska Claudio, RN Pharm. Details Pharmacologic stress testing was performed using 0.4mg per 5ml of regadenoson given intravenously ove r 7-10 seconds. Stress Symptoms Nausea,Dyspnea, headache POST EXERCISE Reason for Termination: Infusion complete Target HR: No Max HR: 129 bpm Max Blood Pressure: 123/73mmHg Blood Pressure response to exercise: Normal blood pressure response during stress. Heart Rate response to exercise: WNL Chest Pain: No. Arrhythmia: Yes. Multiple PVC's and patient stated she took oral potassium this morning and nurse sta simeon she will also receive IV potassium. INTERPRETATION Stress EKG Conclusion: No evidence of stress induced EKG changes. Frequent PVC's. Imaging Protocol IMAGE PROTOCOL: Rest Tc-99m/stress Tc-99m 2 days Rest: Stress: Viability: Radiopharm.Tc99m [id number] Sestamibi Dose33.6mCi 34.3mCi Duration 10min. 10min. Img Date 01/10/2018 01/09/2018 Inj-Img [id number]. 30min. Rest Admin Site:IV - Left HandAdministrator:RT Phoebe YanceyR)(N) Stress Admin Site: IV - Left HandAdministrator: Malathi Connors, RT (R)(N) STRESS DATA End Diast. Vol.80.0mlAv. Heart Rate71.0bpm End Syst. Vol.25.5mlCO Index BSA0.0L/min Myocardial Cibv807.0gEject. Cxryqmej73.0% Stress Rates Pk. Fill Rate3.26EDV/secLVtime Pk. Fill 232.90msec Pk. Empty Rate3.65ESV/secLVtime Pk. Opvfq759.20msec 05/20 Pk. Fill0.63EDV/sec Stress Scores Regional WT0.00Summed WT0.50 Regional WM0.00Summed WM6.50 The rest and stress images show normal perfusion, normal contraction and thickening. LV Perf. Quant 17 Seg. SSS2.00 17 Seg. SRS8.00 17 Seg. SDS0.00 Stress Defect Extent (% LAD)8.75Rest Defect Extent (% LAD)6.30Rev. Defect Extent (% LAD)0.00 Stress Defect Extent (% LCX) 0.00Rest Defect Extent (% LCX)17.50Rev. Defect Extent (% LCX)0.00 Stress Defect Extent (% RCA)0.00Rest Defect Extent (% RCA)0.00Rev. Defect Extent (% RCA)0.00 Stress Defect Extent (% TAYLOR)3.05Rest Defect Extent (% TAYLOR)10.90Rev. Defect Extent (% TAYLOR)0.00 Other Information Quality:Average Risk Assessment: Low Risk Conclusion 1. No evidence of ischemia by EKG. Frequent PVC's noted in the setting of severe electrolyte abnormal ities. 2. Normal perfusion. 3. Normal EF. 4. Low risk study. Signed by : Parish Tirado, Electronically Approved : 01/11/2018 09:19:21
[2018-01-11 09:33] VITALS: BP 108/71
[2018-01-11 10:17] VITALS: BP 116/75
--- NOTE | 2018-01-11 10:23 | PDOC ---
Renal-Progress Notes Subjective Notes Notes NONE History of Present Illness Hx of present illness STABLE, WANTS TO GO HOME Vitals Vitals Vital Signs Date Time Temp Pulse Resp B/P (MAP) Pulse Ox O2 Delivery O2 Flow Rate FiO2 01/11/18 10:17 97.5 63 16 116/75 (89) 99 Room Air 97.5 Weight Weight [ ] I.O. Intake and Output Intake and Output 01/11/18 07:00 Intake Total 3660 ml Output Total 5375 ml Balance -1715 ml Intake Oral 2760 ml IV Total 900 ml Output Urine Total 5375 ml Labs Labs Laboratory Tests Test 01/10/18 22:15 01/11/18 04:25 Urine Collection Type Unknown Urine Color Yellow Urine Clarity Clear Urine pH 7.5 Urine Specific [place] 1.020 Urine Protein Negative mg/dL (NEG-TRACE) Urine Glucose (UA) Negative mg/dL (NEG) Urine Ketones (Stick) Negative mg/dL (NEG) Urine Blood Negative (NEG) Urine Nitrite Negative (NEG) Urine Bilirubin Negative (NEG) Urine Urobilinogen Dipstick 1.0 mg/dL (0.2 mg/dL) Urine Leukocyte Esterase Moderate (NEG) Urine RBC 1-2 /HPF (0-2) Urine WBC 5-10 /HPF (0-4) Urine Squamous Epithelial Cells Few /LPF Urine Bacteria Few /HPF (0-FEW) Prothrombin Time 25.6 SEC (11.7-14.0) Prothromb Time International Ratio 2.4 (0.8-1.1) Sodium Level 134 mmol/L (136-145) Potassium Level 3.8 mmol/L (3.5-5.1) Chloride Level 100 mmol/L (98-107) Carbon Dioxide Level 30 mmol/L (21-32) Anion Gap 4 (6-14) Review of Systems Constitutional: yes: alert, oriented Ears/Nose/Throat: Yes: no symptom reported Eyes: Yes: no symptom reported Pulmonary: Yes no symptom reported Cardiovascular: Yes no symptom reported Gastrointestional: Yes: no symptom reported Genitourinary: Yes: no symptom reported Musculoskeletal: Yes: no symptom reported Skin: Yes no symptom reported Psychiatric/Neurological: Yes: no symptom reported Endocrine: Yes: no symptom reported Physical Exam General Appearance: no apparent distress Skin: warm Respiratory: bilateral CTA Heart: S1S2 Abdomen: soft, bowel sounds present Extremities: pulses present Assessment Assessment IMP HYPONATREMIA-ESSENTIALLY RESOLVED ? RIGHT RENAL PELVIS DILATION LOW K PLAN ON K SUPPLEMENTS OK TO D/C SUGGEST OP UROLOGY TAE D/W ATTENDING ALTAF JUNIOR MD Jan 11, 2018 10:23
[2018-01-11] MEDS: ACETAMINOPHEN 325 MG TABLET. PO PRN (10:53)
--- NOTE | 2018-01-11 11:21 | PDOC2 ---
LUI FISHER DIRECTORY COMPILER 01/11/18 1121: UROLOGY CONSULT Date of Consult Date of Consult DATE: 01/11/18 TIME: 11:16 Identification/Chief Complaint Chief Complaint mild hydronephrosis with hydroureter Source Source: Caregiver, Chart review, Patient History of Present Illness Reason for Visit: Patient is a 57 year old female sent from [facility] for chest pain. During the course of her hospitalization hydronephrosis with hydroureter was found on Ultrasound and prominent right extrarenal l pelvis was found on CT and so Urology was consulted. She denies history of kidney stones or kidney problems, bladder problems, dysuria, or visible hematuria. She does report a history of microscopic hematuria found at doctor's offices only but no gross hematuria. She also denies dysuria. She admits some mild right flank pain that is worse when lying on the hospital bed, and better when she stands up. She does take morphine for chronic pain and admits to chronic constipation because of this, having a bowel movement every 3 to seven days. Past Medical History Cardiovascular: HTN GI: Constipation (Chronic secondary to chronic pain medication use. ) Psych: Depression Musculoskeletal: Other (Chronic back pain) Past Surgical History Past Surgical History: Cholecystectomy, Hysterectomy, No pertinent history Family History Family History: Hypertension Social History 1 pack per day ALCOHOL: rare Drugs: None Lives: with Family Current Medications Current Medications Current Medications Iohexol (Omnipaque 240 Mg/ml) 50 ml 1X ONCE PO Last administered on 01/10/18at 16:30; Start 01/10/18 at 16:30; Stop 01/10/18 at 16:32; Status DC Iohexol (Omnipaque 300 Mg/ml) 75 ml 1X ONCE IV Last administered on 01/10/18at 17:56; Start 01/10/18 at 16:30; Stop 01/10/18 at 16:32; Status DC Warfarin Sodium (Coumadin) 6 mg 1X WARF ONCE PO ; Start 01/10/18 at 16:00; Stop 01/10/18 at 16:00; Status DC Warfarin Sodium (Coumadin) 8 mg 1X WARF ONCE PO Last administered on at 18:03; Start 01/10/18 at 16:00; Stop 01/10/18 at 16:01; Status DC Warfarin Sodium (Coumadin) 8 mg 1X WARF ONCE PO ; Start 01/11/18 at 16:00; Stop 01/11/18 at 16:01 Allergies Allergies: Coded Allergies: ciprofloxacin (Verified Allergy, Intermediate, 01/08/18) lisinopril (Verified Allergy, Intermediate, 01/08/18) omeprazole (Verified Allergy, Intermediate, 01/08/18) ROS Review Of Systems: CONSTITUTIONAL: No fever or chills EYES: No recent changes SKIN: No rash or itching CARDIOVASCULAR: No chest pain, syncope, palpitations, or edema RESPIRATORY: No SOB or cough GASTROINTESTINAL: No nausea, vomiting or abdominal pain NEUROLOGICAL: No headaches or weakness ENDOCRINE: No cold or heat intolerance GENITOURINARY: No urgency or frequency of urination MUSCULOSKELETAL: No back pain or joint pain LYMPHATICS: No enlarged lymph nodes PSYCHIATRIC: No anxiety or depression Physical Exam Physical Exam: General: Pleasant, no acute distress, well groomed Eyes: conjunctiva anicteric, eyes full range of motion ENT: moist oral mucosa, normal dentition Neck: Trachea midline, no masses Respiratory: unlabored breathing, not using accessory muscles Abdomen: nontender, nondistended, no hepatosplenomegaly, no masses Vitals VITALS Vital Signs Date Time Temp Pulse Resp B/P (MAP) Pulse Ox O2 Delivery O2 Flow Rate FiO2 01/11/18 10:17 97.5 63 16 116/75 (89) 99 Room Air 97.5 Labs Labs Laboratory Tests Test 01/10/18 07:40 01/10/18 22:15 01/11/18 04:25 White Blood Count 5.4 x10^3/uL (4.0-11.0) Red Blood Count 4.50 x10^6/uL (3.50-5.40) Hemoglobin 14.3 g/dL (12.0-15.5) Hematocrit 40.8 % (36.0-47.0) Mean Corpuscular Volume 91 fL (79-100) Mean Corpuscular Hemoglobin 32 pg (25-35) Mean Corpuscular Hemoglobin Concent 35 g/dL (31-37) Red Cell Distribution Width 13.2 % (11.5-14.5) Platelet Count 274 x10^3/uL (140-400) Neutrophils (%) (Auto) 31 % (31-73) Lymphocytes (%) (Auto) 58 % (24-48) Monocytes (%) (Auto) 8 % (0-9) Eosinophils (%) (Auto) 3 % (0-3) Basophils (%) (Auto) 1 % (0-3) Neutrophils # (Auto) 1.7 x10^3uL (1.8-7.7) Lymphocytes # (Auto) 3.1 x10^3/uL (1.0-4.8) Monocytes # (Auto) 0.4 x10^3/uL (0.0-1.1) Eosinophils # (Auto) 0.2 x10^3/uL (0.0-0.7) Basophils # (Auto) 0.0 x10^3/uL (0.0-0.2) Prothrombin Time 23.1 SEC (11.7-14.0) 25.6 SEC (11.7-14.0) Prothromb Time International Ratio 2.1 (0.8-1.1) 2.4 (0.8-1.1) Sodium Level 130 mmol/L (136-145) 134 mmol/L (136-145) Potassium Level 3.7 mmol/L (3.5-5.1) 3.8 mmol/L (3.5-5.1) Chloride Level 97 mmol/L (98-107) 100 mmol/L (98-107) Carbon Dioxide Level 29 mmol/L (21-32) 30 mmol/L (21-32) Anion Gap 4 (6-14) 4 (6-14) Blood Urea Nitrogen 13 mg/dL (7-20) Creatinine 0.8 mg/dL (0.6-1.0) Estimated GFR (Cockcroft-Gault) 73.4 Glucose Level 82 mg/dL (70-99) Calcium Level 8.5 mg/dL (8.5-10.1) Cortisol AM Sample 18.7 ug/dL (4.3-22.4) Urine Collection Type Unknown Urine Color Yellow Urine Clarity Clear Urine pH 7.5 Urine Specific [place] 1.020 Urine Protein Negative mg/dL (NEG-TRACE) Urine Glucose (UA) Negative mg/dL (NEG) Urine Ketones (Stick) Negative mg/dL (NEG) Urine Blood Negative (NEG) Urine Nitrite Negative (NEG) Urine Bilirubin Negative (NEG) Urine Urobilinogen Dipstick 1.0 mg/dL (0.2 mg/dL) Urine Leukocyte Esterase Moderate (NEG) Urine RBC 1-2 /HPF (0-2) Urine WBC 5-10 /HPF (0-4) Urine Squamous Epithelial Cells Few /LPF Urine Bacteria Few /HPF (0-FEW) Laboratory Tests Test 01/10/18 22:15 01/11/18 04:25 Urine Collection Type Unknown Urine Color Yellow Urine Clarity Clear Urine pH 7.5 Urine Specific [place] 1.020 Urine Protein Negative mg/dL (NEG-TRACE) Urine Glucose (UA) Negative mg/dL (NEG) Urine Ketones (Stick) Negative mg/dL (NEG) Urine Blood Negative (NEG) Urine Nitrite Negative (NEG) Urine Bilirubin Negative (NEG) Urine Urobilinogen Dipstick 1.0 mg/dL (0.2 mg/dL) Urine Leukocyte Esterase Moderate (NEG) Urine RBC 1-2 /HPF (0-2) Urine WBC 5-10 /HPF (0-4) Urine Squamous Epithelial Cells Few /LPF Urine Bacteria Few /HPF (0-FEW) Prothrombin Time 25.6 SEC (11.7-14.0) Prothromb Time International Ratio 2.4 (0.8-1.1) Sodium Level 134 mmol/L (136-145) Potassium Level 3.8 mmol/L (3.5-5.1) Chloride Level 100 mmol/L (98-107) Carbon Dioxide Level 30 mmol/L (21-32) Anion Gap 4 (6-14) Images Images CT ABD/PLEVIS IMPRESSION: 1. Sigmoid diverticulosis. 2. An inferior vena cava filter and a left common iliac venous stent are in place. 3. Prominent right extrarenal pelvis. 4. No acute abdominal or pelvic abnormality is detected. 1. Slightly heterogeneous hepatic echotexture and echogenicity. No focal hepatic lesion is seen. There is no convincing steatosis. 2. Mild right hydronephrosis and hydroureter. 3. Cholecystectomy. 4. Obscured midline structures due to bowel gas and body habitus. Assessment/Plan Assessment/Plan Hydronephrosis found on US = an extra renal pelvis. Pain sounds musculoskeletal in nature and is unrelated to US findings. Bladder scan 00= no retention. SALESPERSON NECKTIES 0.8, BUN 13. Ok to discharge home whenever medical team/other specialities are ready [facility] sign off at this time, but please call with questions or change in patient condition. FANNY WILLIS MD 01/12/18 1329: UROLOGY CONSULT Assessment/Plan Assessment/Plan 57 yo female admitted for electrolyte abnormality and chest pain. Also relayed right flank pain that started during this admission and is worse while in bed and resolves with standing. US shows mild right hydronephrosis and CT shows an extrarenal pelvis. No past urologic history. Discussed the benign nature of the CT findings and offered f/u PRN. OK to d/c home. LUI FISHER APRN Jan 11, 2018 11:21 FANNY WILLIS MD Jan 12, 2018 13:29
--- NOTE | 2018-01-11 11:58 | PDOC3 ---
Discharge Summary [facility] Date of Admission: Jan 08, 2018 Discharge Date: Jan 11, 2018 Admitting Diagnosis chest pain, not clear etiology, anxiety? hyponatremia, 2/2 diuretics and low po intake hypokalemia, 2/2 diuretics likely headache , likely tension headache h/o scalp AVM h/o hypercoagulopathy with dvt, on coumadin and IVC filter likely copd with tobaccoism HTN bl leg pain on high dose morphine extra renal pelvis CONSULTS renal card uro neuro Procedures MPI neg Brief Hospital Course 57 yo F, was sent from [facility] for chest pain. pT Said she started to feel substernal chest pressure feeling about 2 weeks ago , with some cough , smoking, went to PCP, was found low na, K, High wbc wo details, augmentin given. She went back to fu, was told PNA, levaqin was given. yesterday she went to see PCP again since the chest pain is getting worse, was fouND PVC and admitted to ICU. The chest pain only happens when walks, gone when sit down, with sob, but without diaphoresis, n/v. said not worsening cough compared to her baseline. has h/o AVM, hypercoagulopathy dz , DVT on warfarin, IVC filter. avm on scalp, pt has worsening headache for 2 weeks. Pt now headache is better, has some chest pain sometime when walks, Na, K all better with chlothalidone held and IVF. MPI neg. echo EF 55% wo significant abnormality. CT head normal wo AVM. US showed some mild hydronephrosis , CT SHOWED extra renal pelvis, uro consulted , no need fu or intervention. dc home with kcl 20mg bid., dc chlothalidone. pt has low po intake for a long time hope gets better. dc time 35min. General: Alert, Oriented X3, Cooperative Heart: Regular rate, Normal S1, Normal S2 Lungs: Clear Abdomen: Normal bowel sounds, Soft Extremities: No clubbing, No cyanosis Skin: No rashes Disposition home CONDITION AT DISCHARGE: Improved Scheduled Amlodipine Besylate (Amlodipine Besylate), 5 MG PO DAILY, (Reported) Amoxapine (Amoxapine), 50 MG PO QHS, (Reported) Chlorthalidone (Chlorthalidone), 1 TAB PO DAILY, (Reported) Clonazepam (Clonazepam), 1 TAB PO DAILY08, (Reported) Clonazepam (Clonazepam), 1 TAB PO QHS, (Reported) Metoprolol Succinate (Toprol Xl), 1 TAB PO DAILYWSUP, (Reported) Morphine Sulfate (Morphine Sulfate), 2 TAB PO BID66, (Reported) Potassium Chloride (K-Tab ER), 20 MEQ PO TID, (Reported) Warfarin Sodium (Warfarin Sodium), 1 TAB PO DAILY, (Reported) Zolpidem Tartrate (Zolpidem Tartrate), 1 TAB PO QHS, (Reported) PHYLICIA ALCANTARA MD Jan 11, 2018 11:58
[2018-01-11] MEDS ORDERED: POTA20TA4 PO (12:02)
--- NOTE | 2018-01-11 14:02 | PDOC ---
PROGRESS NOTES Assessment Assessment Headaches. Extracranial AVM per Hx. Hyponatremia. Hypokalemia. Smoking. RECOMMENDATIONS/PLAN: Treat medical diseases. Patient did not want pharmacological intervention for her headache this time due to mild symptoms. FU with PCP. HCT: negative. HISTORY OF THE PRESENT ILLNESS: This is a 57-y-old female patient who was transferred from [facility] for PMC due to chest pain. The patient has long standing history of headaches for decades but complained headaches in her entire head this time. Her headaches are not severe at the time of exam and she stated her headaches were 1-2/10 or 3 -4/10. She stated she had AVM extracranial in her right temporal head area, no intracranial abnormalities in the previous evaluation outside hospital and in [facility]. Past Medical History Cardiovascular: HTN Neurology: Chronic headaches. Past Surgical History No major surgery recently. Family History Hypertension ALLERGY: Reviewed. MEDICATIONS: Refer to [facility] SOCIAL HISTORY: Lives at home. Denies illicit drug use. She smokes 1 pack of cigarettes a day for many years. REVIEW OF SYSTEMS: Constitutional: No malnutrition, weight loss, cachexia. Head: No traumatic brain or head injury. Skin: No edema, or rash. Ear: No infection. Eyes: No vision loss or color blindness. Nose: No bleeding or purulent discharges. Hearing: No hearing decrease. Neck: No injury. Breast: No history of cancer, masses,or discharges. Cardiac: Chest pain. Pulmonary: No COPD. GI: No GI ulcer, GI bleeding. Urinary/genital: UTI. Endocrinologic: No cousin face, craniofacial dysmorphism, polydactyly. Skeletomuscular: No muscular atrophy, deformity. Neurological: see HP. Psychiatric: Denies drug use/abuse. Otherwise, not [id number] review of systems. PHYSICAL EXAMINATION: General appearance is in subacute distress. HEENT: Normocephalic and nontraumatic. Eyes, nose, ears, and throat are unremarkable. Neck is supple. No lymphadenopathy. No bruits are heard over the carotid artery. No crepitus. Cardiovascular: S1, S2, regular rate and rhythm. Pulmonary: Clear to auscultation bilaterally. Abdomen: Bowel sounds are positive. Abdomen is soft, nontender, and nondistended. Extremities: No rash, lesions, or edema. No restriction of range of motion NEUROLOGICAL EXAMINATION: Alert Oriented to time, place and person. PERRL. EOMI. CN: no focal findings. Muscle tone: within normal. Muscle strength: 5 DTR: 2 Plantar reflex: Flexor response bilaterally Gait: Normal. Sensory exam: no abnormal findings. No cerebellar signs elicited. F-T-N test accurate. Objective Objective Vital Signs Date Time Temp Pulse Resp B/P (MAP) Pulse Ox O2 Delivery O2 Flow Rate FiO2 01/11/18 10:17 97.5 63 16 116/75 (89) 99 Room Air 97.5 Intake and Output 01/11/18 07:00 Intake Total 3660 ml Output Total 5375 ml Balance -1715 ml Intake Oral 2760 ml IV Total 900 ml Output Urine Total 5375 ml Vitals Signs Vitals VS - Last 72 Hours, by Label Date Time Temp Pulse Resp B/P (MAP) Pulse Ox O2 Delivery O2 Flow Rate FiO2 01/11/18 10:17 97.5 63 16 116/75 (89) 99 Room Air 97.5 01/11/18 09:35 Room Air 01/11/18 09:33 62 16 108/71 (83) Room Air 01/11/18 08:05 Room Air 01/11/18 07:18 98.3 63 16 108/71 (83) 96 Room Air 98.3 01/11/18 06:04 20 01/11/18 03:48 97.8 75 16 96/53 (67) 94 Room Air 97.8 01/10/18 22:22 98.3 65 16 119/78 (92) 97 Room Air 98.3 01/10/18 22:03 20 01/10/18 19:44 Room Air 01/10/18 19:28 98.5 70 16 110/73 (85) 99 Room Air 98.5 01/10/18 18:04 68 110/66 01/10/18 18:03 98 Room Air 01/10/18 14:39 98.4 68 18 110/66 (81) 98 Room Air 98.4 01/10/18 11:00 97.9 67 17 107/65 (79) 98 Room Air 97.9 01/10/18 09:30 97 Room Air 01/10/18 07:40 Room Air 01/10/18 07:36 98.2 69 17 108/60 (76) 97 Room Air 98.2 Laboratory Laboratory Laboratory Tests Test 01/10/18 22:15 01/11/18 04:25 Urine Collection Type Unknown Urine Color Yellow Urine Clarity Clear Urine pH 7.5 Urine Specific [place] 1.020 Urine Protein Negative mg/dL (NEG-TRACE) Urine Glucose (UA) Negative mg/dL (NEG) Urine Ketones (Stick) Negative mg/dL (NEG) Urine Blood Negative (NEG) Urine Nitrite Negative (NEG) Urine Bilirubin Negative (NEG) Urine Urobilinogen Dipstick 1.0 mg/dL (0.2 mg/dL) Urine Leukocyte Esterase Moderate (NEG) Urine RBC 1-2 /HPF (0-2) Urine WBC 5-10 /HPF (0-4) Urine Squamous Epithelial Cells Few /LPF Urine Bacteria Few /HPF (0-FEW) Prothrombin Time 25.6 SEC (11.7-14.0) Prothromb Time International Ratio 2.4 (0.8-1.1) Sodium Level 134 mmol/L (136-145) Potassium Level 3.8 mmol/L (3.5-5.1) Chloride Level 100 mmol/L (98-107) Carbon Dioxide Level 30 mmol/L (21-32) Anion Gap 4 (6-14) Medication Medications Current Medications Iohexol (Omnipaque 240 Mg/ml) 50 ml 1X ONCE PO Last administered on 01/10/18at 16:30; Start 01/10/18 at 16:30; Stop 01/10/18 at 16:32; Status DC Iohexol (Omnipaque 300 Mg/ml) 75 ml 1X ONCE IV Last administered on 01/10/18at 17:56; Start 01/10/18 at 16:30; Stop 01/10/18 at 16:32; Status DC Potassium Chloride (Klor-Con) 20 meq BIDWMEALS PO ; Start 01/11/18 at 17:00; Stop 01/11/18 at 17:00; Status DC Warfarin Sodium (Coumadin) 6 mg 1X WARF ONCE PO ; Start 01/10/18 at 16:00; Stop 01/10/18 at 16:00; Status DC Warfarin Sodium (Coumadin) 8 mg 1X WARF ONCE PO Last administered on at 18:03; Start 01/10/18 at 16:00; Stop 01/10/18 at 16:01; Status DC Warfarin Sodium (Coumadin) 8 mg 1X WARF ONCE PO ; Start 01/11/18 at 16:00; Stop 01/11/18 at 16:00; Status DC Comment Review of Relevant I have reviewed the following items annie (where applicable) has been applied. OLGA MOYA MD Jan 11, 2018 14:02
--- NOTE | 2018-01-11 14:58 | PDOC ---
PROGRESS NOTES Chief Complaint Chief Complaint chest pain, need to rule out unstable angina hyponatremia, 2/2 diuretics and low po intake hypokalemia, 2/2 diuretics likely headache , likely tension headache h/o scalp AVM h/o hypercoagulopathy with dvt, on coumadin and IVC filter likely copd with tobaccoism HTN bl leg pain on high dose morphine plan: card, neuro consulted, head CT neg hold chlothalidone, hold amlodipine, cont metoprolol given low side bp cont high dose morphine for chronic bl leg pain with dvt MPI today echo EF 55% labs today INR daily, cont warfarin check cE, TSH neg. this note is for 01/10. pt was supposed to dc on 01/10, but renal wanted to do CT so pt stayed. History of Present Illness History of Present Illness ROS: no fever, chills,sob or chest pain very po intake for a few months tension headache neg head CT still low na, K Vitals Vitals Vital Signs Date Time Temp Pulse Resp B/P (MAP) Pulse Ox O2 Delivery O2 Flow Rate FiO2 01/11/18 10:17 97.5 63 16 116/75 (89) 99 Room Air 97.5 Physical Exam General: Alert, Oriented X3, Cooperative Heart: Regular rate, Normal S1, Normal S2 Lungs: Clear Abdomen: Normal bowel sounds, Soft Extremities: No clubbing, No cyanosis Skin: No rashes Labs LABS Laboratory Tests Test 01/10/18 22:15 01/11/18 04:25 Urine Collection Type Unknown Urine Color Yellow Urine Clarity Clear Urine pH 7.5 Urine Specific [place] 1.020 Urine Protein Negative mg/dL (NEG-TRACE) Urine Glucose (UA) Negative mg/dL (NEG) Urine Ketones (Stick) Negative mg/dL (NEG) Urine Blood Negative (NEG) Urine Nitrite Negative (NEG) Urine Bilirubin Negative (NEG) Urine Urobilinogen Dipstick 1.0 mg/dL (0.2 mg/dL) Urine Leukocyte Esterase Moderate (NEG) Urine RBC 1-2 /HPF (0-2) Urine WBC 5-10 /HPF (0-4) Urine Squamous Epithelial Cells Few /LPF Urine Bacteria Few /HPF (0-FEW) Prothrombin Time 25.6 SEC (11.7-14.0) Prothromb Time International Ratio 2.4 (0.8-1.1) Sodium Level 134 mmol/L (136-145) Potassium Level 3.8 mmol/L (3.5-5.1) Chloride Level 100 mmol/L (98-107) Carbon Dioxide Level 30 mmol/L (21-32) Anion Gap 4 (6-14) Comment Review of Relevant I have reviewed the following items annie (where applicable) has been applied. Labs Laboratory Tests Test 01/10/18 07:40 01/10/18 22:15 01/11/18 04:25 White Blood Count 5.4 x10^3/uL (4.0-11.0) Red Blood Count 4.50 x10^6/uL (3.50-5.40) Hemoglobin 14.3 g/dL (12.0-15.5) Hematocrit 40.8 % (36.0-47.0) Mean Corpuscular Volume 91 fL (79-100) Mean Corpuscular Hemoglobin 32 pg (25-35) Mean Corpuscular Hemoglobin Concent 35 g/dL (31-37) Red Cell Distribution Width 13.2 % (11.5-14.5) Platelet Count 274 x10^3/uL (140-400) Neutrophils (%) (Auto) 31 % (31-73) Lymphocytes (%) (Auto) 58 % (24-48) Monocytes (%) (Auto) 8 % (0-9) Eosinophils (%) (Auto) 3 % (0-3) Basophils (%) (Auto) 1 % (0-3) Neutrophils # (Auto) 1.7 x10^3uL (1.8-7.7) Lymphocytes # (Auto) 3.1 x10^3/uL (1.0-4.8) Monocytes # (Auto) 0.4 x10^3/uL (0.0-1.1) Eosinophils # (Auto) 0.2 x10^3/uL (0.0-0.7) Basophils # (Auto) 0.0 x10^3/uL (0.0-0.2) Prothrombin Time 23.1 SEC (11.7-14.0) 25.6 SEC (11.7-14.0) Prothromb Time International Ratio 2.1 (0.8-1.1) 2.4 (0.8-1.1) Sodium Level 130 mmol/L (136-145) 134 mmol/L (136-145) Potassium Level 3.7 mmol/L (3.5-5.1) 3.8 mmol/L (3.5-5.1) Chloride Level 97 mmol/L (98-107) 100 mmol/L (98-107) Carbon Dioxide Level 29 mmol/L (21-32) 30 mmol/L (21-32) Anion Gap 4 (6-14) 4 (6-14) Blood Urea Nitrogen 13 mg/dL (7-20) Creatinine 0.8 mg/dL (0.6-1.0) Estimated GFR (Cockcroft-Gault) 73.4 Glucose Level 82 mg/dL (70-99) Calcium Level 8.5 mg/dL (8.5-10.1) Cortisol AM Sample 18.7 ug/dL (4.3-22.4) Urine Collection Type Unknown Urine Color Yellow Urine Clarity Clear Urine pH 7.5 Urine Specific [place] 1.020 Urine Protein Negative mg/dL (NEG-TRACE) Urine Glucose (UA) Negative mg/dL (NEG) Urine Ketones (Stick) Negative mg/dL (NEG) Urine Blood Negative (NEG) Urine Nitrite Negative (NEG) Urine Bilirubin Negative (NEG) Urine Urobilinogen Dipstick 1.0 mg/dL (0.2 mg/dL) Urine Leukocyte Esterase Moderate (NEG) Urine RBC 1-2 /HPF (0-2) Urine WBC 5-10 /HPF (0-4) Urine Squamous Epithelial Cells Few /LPF Urine Bacteria Few /HPF (0-FEW) Laboratory Tests Test 01/10/18 22:15 01/11/18 04:25 Urine Collection Type Unknown Urine Color Yellow Urine Clarity Clear Urine pH 7.5 Urine Specific [place] 1.020 Urine Protein Negative mg/dL (NEG-TRACE) Urine Glucose (UA) Negative mg/dL (NEG) Urine Ketones (Stick) Negative mg/dL (NEG) Urine Blood Negative (NEG) Urine Nitrite Negative (NEG) Urine Bilirubin Negative (NEG) Urine Urobilinogen Dipstick 1.0 mg/dL (0.2 mg/dL) Urine Leukocyte Esterase Moderate (NEG) Urine RBC 1-2 /HPF (0-2) Urine WBC 5-10 /HPF (0-4) Urine Squamous Epithelial Cells Few /LPF Urine Bacteria Few /HPF (0-FEW) Prothrombin Time 25.6 SEC (11.7-14.0) Prothromb Time International Ratio 2.4 (0.8-1.1) Sodium Level 134 mmol/L (136-145) Potassium Level 3.8 mmol/L (3.5-5.1) Chloride Level 100 mmol/L (98-107) Carbon Dioxide Level 30 mmol/L (21-32) Anion Gap 4 (6-14) Medications Current Medications Acetaminophen (Tylenol) 500 mg PRN Q6HRS PRN PO MILD PAIN / TEMP Last administered on 01/09/18at 11:11; Start 01/08/18 at 14:15; Stop 01/09/18 at 12:59 ; Status DC Metoprolol Succinate (Toprol Xl) 50 mg DAILYBFRSUP PO ; Start 01/08/18 at 17:00 ; Stop 01/08/18 at 17:00; Status DC Morphine Sulfate (Ms Contin) 60 mg [id number] PO Last administered on 01/11/18at 06: 04; Start 01/08/18 at 18:00; Stop 01/11/18 at 13:17; Status DC Chlorthalidone (Thalitone) 25 mg DAILY PO ; Start 01/09/18 at 09:00; Status Cancel Ondansetron HCl (Zofran) 4 mg PRN Q8HRS PRN IV NAUSEA/VOMITING; Start 01/08/18 at 14:15; Stop 01/08/18 at 14:39; Status DC Potassium Chloride (Klor-Con) 20 meq TIDWMEALS PO Last administered on at 11:39; Start 01/08/18 at 17:00; Stop 01/11/18 at 11:57; Status DC Spironolactone (Aldactone) 25 mg DAILY PO ; Start 01/09/18 at 09:00; Stop at 09:00; Status DC Warfarin Sodium (Coumadin Per Pharmacy) 1 each PRN DAILY PRN MC SEE COMMENTS Last administered on 01/11/18at 09:15; Start 01/08/18 at 14:15; Stop 01/11/18 at 13:17; Status DC Zolpidem Tartrate (Ambien) 5 mg QHS PRN PO INSOMNIA; Start 01/08/18 at 14:15; Status Cancel Amlodipine Besylate (Norvasc) 5 mg DAILYWSUP PO ; Start 01/08/18 at 17:00; Stop 01/08/18 at 17:00; Status DC Clonazepam (KlonoPIN) 0.5 mg PRN DAILY PRN PO ANXIETY / AGITATION Last administered on 01/11/18at 11:39; Start 01/08/18 at 14:15; Stop 01/11/18 at 13:17 ; Status DC Clonazepam (KlonoPIN) 1 mg PRN QHS PRN PO ANXIETY / AGITATION Last administered on 01/10/18at 20:58; Start 01/08/18 at 14:15; Stop 01/11/18 at 13:17 ; Status DC Ondansetron HCl (Zofran) 4 mg PRN Q6HRS PRN IV NAUSEA/VOMITING 1st choice; Start 01/08/18 at 14:30; Stop 01/11/18 at 13:17; Status DC Prochlorperazine Edisylate (Compazine) 10 mg PRN Q6HRS PRN IV NAUSEA/VOMITING, 2nd choice; Start 01/08/18 at 14:30; Stop 01/11/18 at 13:17; Status DC Al Hydroxide/Mg Hydroxide (Mylanta Plus Xs) 30 ml PRN Q3HRS PRN PO HEARTBURN / GAS; Start 01/08/18 at 14:30; Stop 01/11/18 at 13:17; Status DC Calcium Carbonate/ Glycine (Tums) 500 mg PRN Q3HRS PRN PO UPSET STOMACH; Start 01/08/18 at 14:30; Stop 01/11/18 at 13:17; Status DC Zolpidem Tartrate (Ambien) 5 mg PRN QHS PRN PO INSOMNIA, MAY REPEAT IN 1HR Last administered on 01/10/18at 20:59; Start 01/08/18 at 14:30; Stop 01/11/18 at 13:17; Status DC Oxycodone HCl (Roxicodone) 5 mg PRN Q3HRS PRN PO BREAKTHROUGH PAIN; Start 01/08 at 14:30; Stop 01/11/18 at 13:17; Status DC Morphine Sulfate (Morphine Sulfate) 1 mg PRN Q1HR PRN IV PAIN; Start 01/08/18 at 14:30; Stop 01/11/18 at 13:17; Status DC Acetaminophen (Tylenol) 650 mg PRN Q6HRS PRN PO Headaches, Temp > 101.5F Last administered on 01/11/18at 10:53; Start 01/08/18 at 14:30; Stop 01/11/18 at 13:17 ; Status DC Ibuprofen (Motrin) 400 mg PRN Q6HRS PRN PO MILD PAIN Last administered on at 20:58; Start 01/08/18 at 14:30; Stop 01/11/18 at 13:17; Status DC Magnesium Hydroxide (Milk Of Magnesia) 2,400 mg PRN Q12HR PRN PO CONSTIPATION; Start 01/08/18 at 14:30; Stop 01/11/18 at 13:17; Status DC Amlodipine Besylate (Norvasc) 5 mg DAILY PO ; Start 01/09/18 at 09:00; Stop at 09:00; Status DC Metoprolol Succinate (Toprol Xl) 25 mg DAILYBFRSUP PO Last administered on 01/10at 18:04; Start 01/09/18 at 17:00; Stop 01/11/18 at 13:17; Status DC Hydralazine HCl (Apresoline) 25 mg PRN Q6HRS PRN PO ELEVATED BP, SEE COMMENTS; Start 01/08/18 at 15:30; Stop 01/11/18 at 13:17; Status DC Amlodipine Besylate (Norvasc) 5 mg DAILYWSUP PO Last administered on 01/08/18at 19:38; Start 01/08/18 at 19:30; Stop 01/09/18 at 08:32; Status DC Warfarin Sodium (Coumadin) 5 mg 1X WARF ONCE PO Last administered on at 19:38; Start 01/08/18 at 19:24; Stop 01/08/18 at 19:25; Status DC Non-Formulary Medication (Amoxapine ) 50 mg QHS PO Last administered on at 20:52; Start 01/08/18 at 21:00; Stop 01/11/18 at 13:17; Status DC Sodium Chloride 1,000 ml @ 75 mls/hr [id number] IV Last administered on at 06:06; Start 01/09/18 at 08:30; Stop 01/11/18 at 13:17; Status DC Potassium Chloride/Water 50 ml @ 50 mls/hr 1X ONCE IV Last administered on at 11:12; Start 01/09/18 at 08:30; Stop 01/09/18 at 09:29; Status DC Regadenoson (Lexiscan) 0.4 mg 1X ONCE IV Last administered on 01/09/18at 09:44 ; Start 01/09/18 at 09:30; Stop 01/09/18 at 09:31; Status DC Warfarin Sodium (Coumadin) 8 mg 1X WARF ONCE PO Last administered on at 17:02; Start 01/09/18 at 16:00; Stop 01/09/18 at 16:01; Status DC Warfarin Sodium (Coumadin) 6 mg 1X WARF ONCE PO ; Start 01/10/18 at 16:00; Stop 01/10/18 at 16:00; Status DC Warfarin Sodium (Coumadin) 8 mg 1X WARF ONCE PO Last administered on at 18:03; Start 01/10/18 at 16:00; Stop 01/10/18 at 16:01; Status DC Iohexol (Omnipaque 300 Mg/ml) 75 ml 1X ONCE IV Last administered on 01/10/18at 17:56; Start 01/10/18 at 16:30; Stop 01/10/18 at 16:32; Status DC Iohexol (Omnipaque 240 Mg/ml) 50 ml 1X ONCE PO Last administered on 01/10/18at 16:30; Start 01/10/18 at 16:30; Stop 01/10/18 at 16:32; Status DC Warfarin Sodium (Coumadin) 8 mg 1X WARF ONCE PO ; Start 01/11/18 at 16:00; Stop 01/11/18 at 16:00; Status DC Potassium Chloride (Klor-Con) 20 meq BIDWMEALS PO ; Start 01/11/18 at 17:00; Stop 01/11/18 at 17:00; Status DC Active Scripts Active Klor-Con M20 (Potassium Chloride) 20 Meq Tab.er.prt 20 Meq PO BIDWMEALS Reported Zolpidem Tartrate 10 Mg Tablet 1 Tab PO QHS Morphine Sulfate 30 Mg Tablet 2 Tab PO BID66 Clonazepam 1 Mg Tablet 1 Tab PO QHS Clonazepam 0.5 Mg Tablet 1 Tab PO DAILY08 Toprol Xl (Metoprolol Succinate) 50 Mg Tab.er.24h 1 Tab PO DAILYWSUP Warfarin Sodium 5 Mg Tablet 1 Tab PO DAILY Amoxapine 50 Mg Tablet 50 Mg PO QHS Vitals/I & O Vital Sign - Last 24 Hours 01/10/18 01/10/18 01/10/18 01/10/18 18:03 18:04 19:28 19:44 Temp 98.5 98.5 Pulse 68 70 Resp 16 B/P (MAP) 110/66 110/73 (85) Pulse Ox 98 99 O2 Delivery Room Air Room Air Room Air 01/10/18 01/10/18 01/11/18 01/11/18 22:03 22:22 03:48 06:04 Temp 98.3 97.8 98.3 97.8 Pulse 65 75 Resp 20 16 16 20 B/P (MAP) 119/78 (92) 96/53 (67) Pulse Ox 97 94 O2 Delivery Room Air Room Air 01/11/18 01/11/18 01/11/18 01/11/18 07:18 08:05 09:33 09:35 Temp 98.3 98.3 Pulse 63 62 Resp 16 16 B/P (MAP) 108/71 (83) 108/71 (83) Pulse Ox 96 O2 Delivery Room Air Room Air Room Air Room Air 01/11/18 10:17 Temp 97.5 97.5 Pulse 63 Resp 16 B/P (MAP) 116/75 (89) Pulse Ox 99 O2 Delivery Room Air Intake and Output 01/10/18 01/10/18 01/11/18 15:00 23:00 07:00 Intake Total 2310 ml 1350 ml Output Total 3975 ml 1400 ml Balance -1665 ml -50 ml PHYLICIA ALCANTARA MD Jan 11, 2018 14:58
[2018-01-11] MEDS ORDERED: WARFARIN 4 MG TABLET. PO ONE (16:00)
[2018-01-11] MEDS ORDERED: POTASSIUM CHLORIDE 20 MEQ TABLET.ER. PO SCH (17:00)
[2018-01-11 19:15] LABS: URINE OSMOLALITY 238 mOsmol/kg (.)
== END 2018-01-11 13:10 | disposition home or self-care (01) | DRG 641 ==
LOC: 2 SOUTH 13:44
PROVIDERS: ADMIT Internal Medicine; ATTEND Internal Medicine
DX: E87.1 Hypo-osmolality and hyponatremia (principal); N13.30 Unspecified hydronephrosis; F41.9 Anxiety disorder, unspecified; E87.6 Hypokalemia; I49.3 Ventricular premature depolarization; F32.9 Major depressive disorder, single episode, unspecified; I10 Essential (primary) hypertension; F17.210 Nicotine dependence, cigarettes, uncomplicated; G89.29 Other chronic pain; K59.09 Other constipation; G44.209 Tension-type headache, unspecified, not intractable; J44.9 Chronic obstructive pulmonary disease, unspecified; T50.2X5A Adverse effect of carbonic-anhydrase inhibitors, benzothiadiazides and other diuretics, initial encounter; Y92.89 Other specified places as the place of occurrence of the external cause; Z79.01 Long term (current) use of anticoagulants; Z88.8 Allergy status to other drugs, medicaments and biological substances; Z90.710 Acquired absence of both cervix and uterus; Z87.01 Personal history of pneumonia (recurrent); Z86.718 Personal history of other venous thrombosis and embolism; Z82.49 Family history of ischemic heart disease and other diseases of the circulatory system; Q27.39 Arteriovenous malformation, other site
CPT/HCPCS: 36415; 70450; 71046; 74177; 76700; 78452; 80048; 80051; 80307; 81001; 82533; 82553; 83735; 83930; 83935; 84133; 84300; 84443; 84484; 84550; 85025; 85610; 85651; 87086; 93017; 93306; 96374; 96375; 96376; A9500; J2785; J3480; J7030; Q9966; Q9967; G0479

== ENCOUNTER 2018-08-24 10:18 | Inpatient (IN) | payer MEDICARE ==
[~2018-08-24] VITALS: Ht 165.1 cm; Wt 62.6 kg
[~2018-08-24 10:18] MED LIST: AMLO5TAB10 PO; AMOX50TA PO; CHLO25TA10 PO; CLON0.5T11 PO; CLON1TAB11 PO; METO-269 PO; MORP30TA PO; POTA20TA4 PO; POTA20TA84 PO; WARF-31 PO; ZOLP10TA4 PO
[2018-08-24 13:00] VITALS: BP 144/69
[2018-08-24] MEDS ORDERED: KETOROLAC 30 MG/ML VIAL. IV PRN (14:15)
[2018-08-24 14:57] VITALS: BP 145/73
[2018-08-24] MEDS: IV NORMAL SALINE 1000ML BAG 1,000 ML IV SCH (15:00)
--- NOTE | 2018-08-24 15:11 | NUR ---
Pt is [facility] transfer, pt is stable. Alert x4. will continue to monitor closely
--- NOTE | 2018-08-24 15:21 | PDOC2 ---
GI CONSULT Reason For Consult: Diverticulitis, diarrhea HPI: HPI: 57 y/o female transferred from [facility] - tearful and frustrated when I saw her. She says she had a screening colonoscopy w/ Dr. Ellis @ [facility] ~5 months ago ( which reportedly showed diverticulosis and a polyp). Prior to this, no issues w / constipation or diarrhea (though past documentation suggests chronic constipation 2/2 pain medication). After the colonoscopy, she began having intermittent diarrhea. At some point, she developed LLQ pain. She says she saw Dr. Palm on 08/05/18 and was prescribed Flagyl for presumed diverticulitis. She took Flagyl for a week - pain and diarrhea did not improve and it caused significant nausea making it hard to eat. She went to the [facility] ER on 08/14 - CT showed long segment mild wall thickening of the sigmoid colon w/ multiple diverticula present - considerations of mild diffuse diverticulitis or colitis, also noted mild small bowel mucosal enhancement and fluid - may be due to enteritis, and additionally mentions retained stool greater of the right and transverse colon. She was discharged home w/ Augmentin which caused worsening diarrhea. Then she saw Dr. Palm in his office again and was directly admitted to [facility] over the weekend. She says diarrhea was terrible - had to wear Depends, embarrassed w/ incontinence. Has been kept to liquid diet - tolerates some clears, but diarrhea gets worse when attempting to advance to full liquids. Today has had three stools - brown and watery. LLQ pain persists, also without improvement. It is a constant ache but can be sharp/stabbing and sometimes spread to the RLQ. She also has lower abdominal cramping related to stooling. Nausea has improved since stopping Flagyl. Denies reflux/heartburn (though does occasionally take Tums after eating certain foods). No dysphagia. No vomiting/hematemesis. No hematochezia or melena (though saw a speck of red blood on the toilet tissue from frequent wiping a couple days ago). Assumes weight loss throughout this illness. S/p cholecystectomy for sludge. No pancreas, liver, PUD, or diverticulitis history. No previous EGD. Says that someone thought she might have ulcerative colitis in her 40s so she had a colonoscopy that was normal. She recalls no significant symptoms - denies abd pain, weight loss, diarrhea, and bleeding at that time. Has had more than one colonoscopy since apparently without findings concerning for IBD. Some NSAID use in the past - stopped when "the CT said I had enteritis." Does have chronic leg pain on MS Contin 60mg BID. Additional h/o recurrent DVTs and May-Thurner syndrome w/ left iliac stent and IVC filter on Warfarin. I am unable to view records from [facility] in [facility]. Reviewed records in paper chart that were sent - I believe she was getting clindamycin and cefepime (and now on Zosyn). Progress note indicates C Diff was negative. WBC on 08/21 was normal. No abd imaging since CT on 08/14. PMH: PMH: HTN, pneumonia, DDD, chronic pain, depression, ?colon polyp, diverticulosis, May -Thurner syndrome hysterectomy, cholecystectomy ("sludge"), IVC filter, left iliac stent, tonsillectomy FH: Family History: Cancer (GM - ?GI cancer, had internal bleeding; GF - colon cancer), Other (brother - colostomy 2/2 diverticulitis; father - colon resection 2/2 diverticulitis) Social History: Smoke: <1 pack per day ALCOHOL: none Drugs: None ROS: GEN: Denies fevers, chills, sweats HEENT: Denies blurred vision, sore throat CV: Denies chest pain RESP: Denies shortness of air, cough GI: Per HPI : Denies hematuria, dysuria ENDO: +weight loss NEURO: Denies confusion, dizziness MSK: +chronic leg pain SKIN: Denies jaundice, pruritus Vitals: Vitals: Vital Signs Date Time Temp Pulse Resp B/P (MAP) Pulse Ox O2 Delivery O2 Flow Rate FiO2 08/24/18 13:00 98.2 57 16 144/69 (94) 99 Room Air 98.2 Allergies: Coded Allergies: ciprofloxacin (Verified Allergy, Intermediate, 01/08/18) lisinopril (Verified Allergy, Intermediate, 01/08/18) omeprazole (Verified Allergy, Intermediate, 01/08/18) Imaging: Imaging: Per HPI. PE: GEN: NAD HEENT: Atraumatic, PERRL LUNGS: CTAB anteriorly HEART: RR ABD: NABS, S/ND, LLQ tenderness tracking over suprapubic region to RLQ EXTREMITY: No edema SKIN: No rashes, no jaundice NEURO/PSYCH: A & O 3, tearful, frustrated A/P: A/P: Lower abd pain and diarrhea - C Diff neg @ [facility] Abnormal CT on 08/14/18 - long segment mild wall thickening of the sigmoid colon w/ multiple diverticula present, mild small bowel mucosal enhancement and fluid , retained stool greater of right and transverse colon CRC screen - UTD (S[facility] w[facility] Dr. Ellis) H/o colon polyp Diverticulosis S/p cholecystectomy FH colon cancer and diverticular disease Chronic pain on MS Contin - per primary H/o DVTs, May-Thurner syndrome on Warfarin - per primary -- D/w Dr. Lechuga - recheck basic labs (?last done on 08/21), add ESR and CRP, check stool culture, O&P, random fat - also recheck CT A/P. Checked re: calprotectin and elastase - done through [facility] as send out tests - need special permission to have done as inpt. (#[id number] and #[id number] are test codes) Okay for clears after CT. Since I have seen, note omeprazole as listed allergy. FERNANDO MCCORMACK Aug 24, 2018 15:21
[2018-08-24 16:00] LABS: HEMATOCRIT 40.3 % (36.0-47.0); HEMOGLOBIN 13.7 g/dL (12.0-15.5); RED BLOOD COUNT 4.58 x10^6/uL (3.50-5.40); RED CELL DISTRIBUTION WIDTH 13.3 % (11.5-14.5); WHITE BLOOD COUNT 5.1 x10^3/uL (4.0-11.0)
[2018-08-24 16:17] LABS: CALCIUM 8.5 mg/dL (8.5-10.1); CREATININE 0.8 mg/dL (0.6-1.0); GFR 73.4; POTASSIUM 4.3 mmol/L (3.5-5.1)
[2018-08-24 16:20] LABS: C-REACTIVE PROTEIN 1.5 mg/L (0-3.3)
[2018-08-24 16:22] LABS: ALBUMIN 3.3 g/dL (3.4-5.0); ALBUMIN/GLOBULIN RATIO 1.1 (1.0-1.7); TOTAL BILIRUBIN 0.7 mg/dL (0.2-1.0); TOTAL PROTEIN 6.3 g/dL (6.4-8.2)
[2018-08-24] MEDS ORDERED: IOHEXOL 240 MG/ML 50ML VIAL. ONE (16:48)
[2018-08-24] MEDS ORDERED: IOHEXOL 300 MG/ML 100ML VIAL. ONE (16:49)
--- NOTE | 2018-08-24 16:52 | NUR ---
Pharmacy Warfarin Dosing Note S:Pharmacy consulted to assist with anticoagulation therapy with target INR: 3-3.5 (Per MD) O:LATA LOJA is a 57 year old F with H/O DVT LABS: Last INR: 2.6 (FROM [facility]) Last HGB: 13.7 Last HCT: 40.3 Last PLT: 251 Previous Regimen: 5mg daily A:INR of 2.6 (FROM [facility]) is below desired range. Target range for this patient is: 3-3.5 (Per MD) P: Warfarin dose: 5 mg Today at 1600 Bridge Therapy: None Next INR due tomorrow Pharmacy anticoagulation service will continue to follow. Daniella Yoder [facility], 08/24/18 [id number]
[2018-08-24] MEDS ORDERED: WARFARIN 5 MG TABLET. PO ONE (17:00)
[2018-08-24] MEDS: PIPERACILLIN/TAZOBACTAM 3.375 GM in IV NORMAL SALINE 50ML 50 ML IV SCH (17:40)
[2018-08-24] MEDS: MORPHINE ER 30 MG TABLET.ER PO SCH (17:41)
[2018-08-24] MEDS: METOPROLOL SUCC 24HR ER 50 MG TAB.ER.24H. PO SCH (17:59)
[2018-08-24 19:00] VITALS: BP 122/74
[2018-08-24] MEDS ORDERED: CEFEPIME HCL IV Push 2 GM VIAL. IVP SCH (21:00)
[2018-08-24] MEDS: AMOXAPINE PO SCH (21:16)
[2018-08-24] MEDS: clonazePAM 1 MG TABLET PO SCH (21:16)
[2018-08-24] MEDS: ZOLPIDEM 5 MG TABLET. PO SCH (21:16)
[2018-08-24] MEDS ORDERED: CLINDAMYCIN 600MG PREMIX 50 ML IV SCH (22:00)
[2018-08-24 23:00] VITALS: BP 129/62
[2018-08-25] MEDS: PIPERACILLIN/TAZOBACTAM 3.375 GM in IV NORMAL SALINE 50ML 50 ML IV SCH ×3 (00:28→13:27)
[2018-08-25] MEDS: IV NORMAL SALINE 1000ML BAG 1,000 ML IV SCH ×2 (02:15→13:28)
[2018-08-25 03:00] VITALS: BP_SYST 10; BP_SYST 100; BP_DIAS 48; BP_DIAS 62
[2018-08-25] MEDS: MORPHINE ER 30 MG TABLET.ER PO SCH ×2 (06:04→18:41)
[2018-08-25 07:00] VITALS: BP 133/63
[2018-08-25 07:11] LABS: PROTHROMBIN TIME PATIENT 23.5 SEC (11.7-14.0)
[2018-08-25 07:14] LABS: ALBUMIN 3.2 g/dL (3.4-5.0); ALBUMIN/GLOBULIN RATIO 1.1 (1.0-1.7); CALCIUM 8.4 mg/dL (8.5-10.1); CREATININE 0.8 mg/dL (0.6-1.0); GFR 73.4; POTASSIUM 3.4 mmol/L (3.5-5.1); TOTAL BILIRUBIN 0.7 mg/dL (0.2-1.0); TOTAL PROTEIN 6.2 g/dL (6.4-8.2)
[2018-08-25 07:38] LABS: BASO % 0 % (0-3); EOS # 0.1 x10^3/uL (0.0-0.7); EOS % 3 % (0-3); HEMATOCRIT 39.7 % (36.0-47.0); LYMPH # 2.3 x10^3/uL (1.0-4.8); LYMPH % 48 % (24-48); MEAN CORPUSCULAR HEMOGLOBIN 31 pg (25-35); MEAN CORPUSCULAR HGB CONC 35 g/dL (31-37); MEAN CORPUSCULAR VOLUME 87 fL (79-100); MONO # 0.4 x10^3/uL (0.0-1.1); MONO % 8 % (0-9); NEUT # 1.9 x10^3uL (1.8-7.7); NEUT % 40 % (31-73); PLATELET COUNT 239 x10^3/uL (140-400); RED BLOOD COUNT 4.54 x10^6/uL (3.50-5.40); RED CELL DISTRIBUTION WIDTH 13.6 % (11.5-14.5); WHITE BLOOD COUNT 4.7 x10^3/uL (4.0-11.0)
--- NOTE | 2018-08-25 08:31 | RAD ---
Examination: CT ABD PELV W/ORAL IV CONTRAST History: diarrhea, lower abd pain, ?diverticulitis/enteritis on CT 08/14/18, IV CONTRAST Omni 300, 75 MLs with oral [id number] 30mls, Comparison/Correlation: 01/10/2018 CT abdomen and pelvis with oral and IV contrast Findings: Axial images of the abdomen and pelvis were obtained following IV and oral contrast. Multiple calcified illness involve the lung bases. Cholecystectomy noted. Liver, spleen, and adrenal glands are normal. Bilateral extrarenal pelves noted. No extraluminal gas. Inferior vena cava filter is present. Distal abdominal aortic 2 cm diameter aneurysm near the bifurcation is present. Significant calcific involvement of the distal abdominal aorta and common iliac arteries with patient's age noted. Stent material is present involving the left common iliac vein. Urinary bladder is unremarkable. Minimal pelvic free fluid is present. Marked diverticulosis of the sigmoid colon is present. Fluid is noted within the colon diffusely. No suspicious inflammatory change identified. Appendix is not delineated about the cecum. No suspicious inflammatory change about the cecum suggested. Uterus is atrophic or absent. Significant L4-5 disc space narrowing with vacuum phenomenon and endplate sclerosis is noted. Minimal anterolisthesis of L4 relation L5 is present and less than grade 1 extent. Impression: Diverticulosis of the sigmoid colon. No evidence of acute inflammation. No suspicious likely collection. Minimal pelvic free fluid of indeterminate significance. Fluid within colon is noted and may represent gastroenteritis. 2 cm diameter distal abdominal aortic aneurysm. PQRS Compliance Statement: One or more of the following individualized dose reduction techniques were utilized for this examination: 1. Automated exposure control 2. Adjustment of the mA and/or kV according to patient size 3. Use of iterative reconstruction technique Electronically signed by: Leonel Walden MD (08/25/2018 8:28 AM) [facility]
[2018-08-25] MEDS ORDERED: CHLORTHALIDONE 25 MG TABLET. PO SCH (09:00)
--- NOTE | 2018-08-25 09:07 | PDOC ---
Subjective: Subjective: >15 stools since I saw her yesterday. Pain is crampy and intermittent. Jello tasted good this morning but probably made diarrhea worse. Objective: Objective: Tmax 100 Vital Signs: Vital Signs Date Time Temp Pulse Resp B/P (MAP) Pulse Ox O2 Delivery O2 Flow Rate FiO2 08/25/18 07:00 100.0 51 16 133/63 (86) 96 Room Air 100.0 Labs: Laboratory Tests Test 08/24/18 15:45 08/25/18 05:17 08/25/18 05:27 White Blood Count 5.1 x10^3/uL 4.7 x10^3/uL Red Blood Count 4.58 x10^6/uL 4.54 x10^6/uL Hemoglobin 13.7 g/dL 14.0 g/dL Hematocrit 40.3 % 39.7 % Mean Corpuscular Volume 88 fL 87 fL Mean Corpuscular Hemoglobin 30 pg 31 pg Mean Corpuscular Hemoglobin Concent 34 g/dL 35 g/dL Red Cell Distribution Width 13.3 % 13.6 % Platelet Count 251 x10^3/uL 239 x10^3/uL Erythrocyte Sedimentation Rate 4 Sodium Level 134 mmol/L 136 mmol/L Potassium Level 4.3 mmol/L 3.4 mmol/L Chloride Level 97 mmol/L 100 mmol/L Carbon Dioxide Level 28 mmol/L 27 mmol/L Anion Gap 9 9 Blood Urea Nitrogen 5 mg/dL 6 mg/dL Creatinine 0.8 mg/dL 0.8 mg/dL Estimated GFR (Cockcroft-Gault) 73.4 73.4 BUN/Creatinine Ratio 6 8 Glucose Level 69 mg/dL 66 mg/dL Calcium Level 8.5 mg/dL 8.4 mg/dL Total Bilirubin 0.7 mg/dL 0.7 mg/dL Aspartate Amino Transf (AST/SGOT) 31 U/L 28 U/L Alanine Aminotransferase (ALT/SGPT) 35 U/L 32 U/L Alkaline Phosphatase 58 U/L 54 U/L C-Reactive Protein, Quantitative 1.5 mg/L Total Protein 6.3 g/dL 6.2 g/dL Albumin 3.3 g/dL 3.2 g/dL Albumin/Globulin Ratio 1.1 1.1 Lipase 114 U/L Neutrophils (%) (Auto) 40 % Lymphocytes (%) (Auto) 48 % Monocytes (%) (Auto) 8 % Eosinophils (%) (Auto) 3 % Basophils (%) (Auto) 0 % Neutrophils # (Auto) 1.9 x10^3uL Lymphocytes # (Auto) 2.3 x10^3/uL Monocytes # (Auto) 0.4 x10^3/uL Eosinophils # (Auto) 0.1 x10^3/uL Basophils # (Auto) 0.0 x10^3/uL Prothrombin Time 23.5 SEC Prothromb Time International Ratio 2.1 Imaging: CT A/P 08/24/18 Multiple calcified illness involve the lung bases. Cholecystectomy noted. Liver, spleen, and adrenal glands are normal. Bilateral extrarenal pelves noted. No extraluminal gas. Inferior vena cava filter is present. Distal abdominal aortic 2 cm diameter aneurysm near the bifurcation is present. Significant calcific involvement of the distal abdominal aorta and common iliac arteries with patient's age noted. Stent material is present involving the left common iliac vein. Urinary bladder is unremarkable. Minimal pelvic free fluid is present. Marked diverticulosis of the sigmoid colon is present. Fluid is noted within the colon diffusely. No suspicious inflammatory change identified. Appendix is not delineated about the cecum. No suspicious inflammatory change about the cecum suggested. Uterus is atrophic or absent. Significant L4-5 disc space narrowing with vacuum phenomenon and endplate sclerosis is noted. Minimal anterolisthesis of L4 relation L5 is present and less than grade 1 extent. Impression: Diverticulosis of the sigmoid colon. No evidence of acute inflammation. No suspicious likely collection. Minimal pelvic free fluid of indeterminate significance. Fluid within colon is noted and may represent gastroenteritis. 2 cm diameter distal abdominal aortic aneurysm. PE: GEN: NAD - walked from nurses station back to room, sat in recliner LUNGS: room air HEART: RRR ABD: quiet/hypoactive BS, soft, LLQ/suprapubic/RLQ tenderness - ?better today NEURO/PSYCH: A & O 3 A/P: Lower abd pain and diarrhea - C Diff neg @ [facility], screening colonoscopy ~[address] on 08/14/18 w/ ?colitis/diverticulitis/enteritis - interval exam on without ongoing inflammation, notes fluid in the colon AAA - defer to primary -- Ongoing diarrhea, though seems in better spirits today. Remains hesitant to advance diet. Stool culture, O&P, and fecal fat pending. ESR and CRP WNL. Need to review w/ Dr. Lechuga - ?try Imodium/Lomotil, ?need for antibiotics. ? recheck C Diff - has been on multiple antibiotics. Defer chronic pain control to primary. FERNANDO MCCORMACK Aug 25, 2018 09:07
[2018-08-25] MEDS ORDERED: DICYCLOMINE HCL 10 MG CAPSULE PO PRN (09:15)
[2018-08-25] MEDS: POTASSIUM CHLORIDE 20 MEQ TABLET.ER. PO SCH (09:38)
[2018-08-25] MEDS: clonazePAM 0.5 MG TABLET PO SCH (09:38)
[2018-08-25] MEDS: LACTOBACILLUS RHAMNOSUS GG 1 CAPSULE. PO SCH ×2 (09:38→21:44)
[2018-08-25] MEDS: AMOXAPINE PO SCH ×2 (09:39→21:44)
[2018-08-25] MEDS: HYDROcodone/APAP 5/325MG 1 TAB TABLET PO PRN ×2 (09:52→22:34)
--- NOTE | 2018-08-25 10:31 | HP ---
ADMIT DATE: 08/24/2018 HISTORY OF PRESENT ILLNESS: The patient is a 57-year-old female patient who basically was admitted to [facility] on 08/14 because of diarrhea. She claims that she is embarrassed with incontinence. She has been on a liquid diet; however, her diarrhea gets worse whenever she attempts to advance her diet. She also has severe left lower quadrant pain that the MS Contin that she is on is not controlled adequately. The patient stated that she had a screening colonoscopy done by Dr. Ellis about 5 months ago, which apparently showed that she has diverticulosis and a polyp and prior to colonoscopy, she has not had any problem with diarrhea or constipation. However, her diarrhea has steadily worsened since that colonoscopy, and she also developed left lower quadrant pain. She saw Dr. Palm on 08/05/2018, and she was given prescription for Flagyl for possibility of diverticulitis, and she developed severe nausea and vomiting. However, her diarrhea and pain did not improve. She was seen in the Emergency Room of [facility], and a CT scan showed that she has a long segment of mild wall thickening of the sigmoid colon with multiple diverticula, and she was given a prescription for Augmentin; however, the Augmentin only caused worsening of her diarrhea, and then, she saw Dr. Palm in his office again and was directly admitted to [facility], and from there, she was transferred to [facility] for further evaluation and treatment. PAST MEDICAL HISTORY: Significant for hypertension, degenerative disk disease, depression. She has diverticulosis and May-Thurner syndrome. She has an IVC filter and stent in her left iliac vein. PAST SURGICAL HISTORY: Significant for cholecystectomy, hysterectomy, IVC filter placement, left iliac vein stent and tonsillectomy. FAMILY HISTORY: Positive for colon cancer in her grandfather, her brother has a colostomy secondary to diverticulitis and father has colon resection secondary to diverticulitis. SOCIAL HISTORY: She is disabled, and she continued to smoke less than a pack a day, does not drink alcohol or recreational drugs. She is currently on disability. ALLERGIES: SHE IS ALLERGIC TO CIPROFLOXACIN, LISINOPRIL AND OMEPRAZOLE. MEDICATIONS: She is currently on following medications: She is on Warfarin 5 mg daily. Metoprolol succinate 50 mg once a day, MS Contin 30 mg 2 tablets twice a day, clonazepam 0.5 mg daily and clonazepam 1 mg at bedtime, amoxapine 50 mg at bedtime, Ambien 10 mg at bedtime and potassium chloride 20 mEq twice a day with meals. REVIEW OF SYSTEMS: The patient denied any blurring of vision, cataract, glaucoma or macular degeneration. Denied any earache, tinnitus or sensorineural deafness. Denied any nosebleeds, stuffy nose or postnasal drip. Denied any sore throat, sore tongue, toothache, hoarseness of voice or difficulty swallowing. Did complain of nausea, but no vomiting. She has a complaint of diarrhea. She stated that she has multiple loose bowel movements. Denied any dysuria, frequency or hematuria. Denied any chest pain, shortness of breath, orthopnea, paroxysmal nocturnal dyspnea. PHYSICAL EXAMINATION: GENERAL: On arrival to the hospital, she looked well and was clearly in no apparent respiratory distress, somewhat pale, but no jaundice, cyanosis or thyromegaly. No jugular venous distension. No lower limb edema. VITAL SIGNS: Her heart rate was 57, blood pressure 144/69, temperature was 98.2, respiratory rate was 16 and oxygen saturation was 99% on room air. HEAD, EYES, EARS, NOSE AND THROAT: Showed normocephalic, atraumatic. NECK: Supple. HEART: Showed normal first and second heart sounds with no gallop, rub or murmur. CHEST: Clear to auscultation. No crepitation or rhonchi. ABDOMEN: Scaphoid, soft. Tenderness mostly in the left lower quadrant. There is no guarding or rigidity. No organomegaly. All hernial orifice intact. Bowel sounds normal. NEUROLOGIC: She is awake, alert, responding appropriately. All cranial nerves intact. EXTREMITIES: She moves extremities without difficulty. She ambulates without assistance or assistive devices. LABORATORY DATA: On arrival showed a serum sodium 134, potassium 4.3, chloride 97, bicarbonate 28, anion gap of 9, BUN 5, creatinine 0.8, estimated GFR was 73 mL per minute. Her glucose was 69, calcium was 8.5. Total bilirubin, AST, ALT, alkaline phosphatase were normal. Her total protein was 6.3, albumin 3.3. Her C-reactive protein was 1.5 mg/dL and serum lipase was 114. Her sed rate was only 4 mm per hour. White cell count was 5100, hemoglobin 14, hematocrit 42, MCV 88 and platelet count 251,000. Her prothrombin time was 23.5, INR of 2.1. ASSESSMENT AND PLAN: In summary, this is a 57-year-old female patient with chronic diarrhea dating back to about 5 months ago after she had had the screening colonoscopy. She was treated once for possible diverticulitis with Flagyl. She took the Flagyl for about the week and the pain and diarrhea did not improve; however, it caused severe nausea, making it hard for her to eat. She was seen another time at the Emergency Room of [facility] and CT scan showed a long segment of mild wall thickening of the sigmoid colon with multiple diverticula and was treated with a course of Augmentin that caused worsening of diarrhea. She was admitted directly to [facility], and from there, she was transferred to [facility] for further evaluation and treatment. My plan is to obviously continue with IV fluid, continue with all her medication, and we will obviously consult the voice teacher and to assist to help with her chronic diarrhea and left lower quadrant pain. The patient was on clindamycin, cefepime, and we switched her to Zosyn to simplify the treatment. SABINE CREWS MD DR: XIMENA/julia JOB#: [id number] / [id number]
[2018-08-25 10:40] VITALS: BP 118/69
--- NOTE | 2018-08-25 13:27 | NUR ---
SW following pt for anticipated dc needs. Chart reviewed and discussed with RN. Pt lives at home with spouse. RN reported pt is independent with ADL's and no SW needs noted at this time.
[2018-08-25 15:00] VITALS: BP 134/77
--- NOTE | 2018-08-25 16:06 | NUR ---
Pharmacy Warfarin Dosing Note S: Pharmacy consulted to assist with anticoagulation therapy O: LATA LOJA is a 57 year old F with H/O DVT LABS: Last INR: 2.1 Last HGB: 14 Last HCT: 39.7 Last PLT: 239 Last dose of 5 mg given on 08/24/18 at 1759 A:INR of 2.1 is below desired range. Target range for this patient is: 3-3.5 (Per MD) P: Warfarin dose: 6 mg Today at 1600 Bridge Therapy: None Next INR due tomorrow Pharmacy anticoagulation service will continue to follow. Daniella Yoder Mary, 08/25/18 0707
[2018-08-25] MEDS ORDERED: WARFARIN 3 MG TABLET. PO ONE (17:00)
[2018-08-25] MEDS: METOPROLOL SUCC 24HR ER 50 MG TAB.ER.24H. PO SCH (18:40)
[2018-08-25 19:00] VITALS: BP 105/59
[2018-08-25] MEDS: clonazePAM 1 MG TABLET PO SCH (21:44)
[2018-08-25] MEDS: ZOLPIDEM 5 MG TABLET. PO SCH (21:44)
[2018-08-25 23:00] VITALS: BP 114/73
[2018-08-26] MEDS: IV NORMAL SALINE 1000ML BAG 1,000 ML IV SCH ×2 (00:08→07:00)
[2018-08-26 03:15] VITALS: BP 115/54
[2018-08-26 06:01] LABS: CALCIUM 8.7 mg/dL (8.5-10.1); CREATININE 0.6 mg/dL (0.6-1.0); GFR 102.3; POTASSIUM 3.4 mmol/L (3.5-5.1)
[2018-08-26] MEDS: MORPHINE ER 30 MG TABLET.ER PO SCH (06:26)
[2018-08-26 06:39] LABS: PROTHROMBIN TIME PATIENT 27.4 SEC (11.7-14.0)
[2018-08-26 07:00] VITALS: BP 132/88
[2018-08-26] MEDS: AMOXAPINE PO SCH (09:00)
[2018-08-26] MEDS: POTASSIUM CHLORIDE 20 MEQ TABLET.ER. PO SCH (09:10)
[2018-08-26] MEDS: LACTOBACILLUS RHAMNOSUS GG 1 CAPSULE. PO SCH (09:10)
[2018-08-26] MEDS: clonazePAM 0.5 MG TABLET PO SCH (09:10)
[2018-08-26] MEDS: HYDROcodone/APAP 5/325MG 1 TAB TABLET PO PRN (09:10)
--- NOTE | 2018-08-26 09:16 | PDOC ---
Subjective: Subjective: Had pancakes and eggs for breakfast - tolerated well. Had a stool after but diarrhea is slowing overall. LLQ pain has also improved. She'd really like to go home today. Objective: Vital Signs: Vital Signs Date Time Temp Pulse Resp B/P (MAP) Pulse Ox O2 Delivery O2 Flow Rate FiO2 08/26/18 09:10 98 Room Air 08/26/18 07:00 98.5 67 20 132/88 (103) 98.5 Labs: Laboratory Tests Test 08/26/18 05:00 Prothrombin Time 27.4 SEC Prothromb Time International Ratio 2.6 Sodium Level 135 mmol/L Potassium Level 3.4 mmol/L Chloride Level 101 mmol/L Carbon Dioxide Level 25 mmol/L Anion Gap 9 Blood Urea Nitrogen 10 mg/dL Creatinine 0.6 mg/dL Estimated GFR (Cockcroft-Gault) 102.3 Glucose Level 87 mg/dL Calcium Level 8.7 mg/dL PE: GEN: NAD - up to chair - looks better today LUNGS: room air ABD: soft, less LLQ discomfort NEURO/PSYCH: A & O 3 A/P: Lower abd pain and diarrhea - improving, ?post-infectious IBS-D vs bile salt diarrhea, stool studies pending -- Improved, asking to discharge and follow-up as outpt - will confirm w/ Dr. Lechuga. FERNANDO MCCORMACK Aug 26, 2018 09:16
--- NOTE | 2018-08-26 09:33 | NUR ---
Pharmacy Warfarin Dosing Note S:Pharmacy consulted to assist with anticoagulation therapy started with target INR: 3-3.5 (Per MD) O:LATA LOJA is a 57 year old F with H/O DVT LABS: Last INR: 2.6 Last HGB: 14 Last HCT: 39.7 Last PLT: 239 Last dose of 6 mg given on 08/25/18 at 1840 Previous Regimen: 5mg daily Vitamin K given: Drug Interaction Changes: Ongoing Drug Interactions: A:INR of 2.6 is below desired range. Target range for this patient is: 3-3.5 (Per MD) P: Warfarin dose: 5 mg Today at 1600 Bridge Therapy: None Next INR due 08/27/18 Pharmacy anticoagulation service will continue to follow. ELIZA BURCIAGA [facility], 08/26/18 0912
--- NOTE | 2018-08-26 11:20 | NUR ---
Discharge Note: LATA LOJA Discharge instructions and discharge home medications reviewed with Patient and a copy given. All questions have been answered and understanding verbalized. The following instructions and handouts were given: Diarrhea Discontinued lines and drains: Peripheral IV intact. Patient discharged to Home or Self Care with Family Member via Wheelchair
[2018-08-26] MEDS ORDERED: WARFARIN 5 MG TABLET. PO ONE (16:00)
--- NOTE | 2018-08-26 19:29 | DS ---
DATE OF DISCHARGE: 08/26/2018 HOSPITAL COURSE: The patient was admitted yesterday with basically chronic diarrhea dating back to about 5 months ago after she had screening colonoscopy. She was treated several times for possible diverticulitis with a course of Flagyl as well as Augmentin and was admitted directly to [facility] and was transferred here for further evaluation and to consult the proof passer. She was seen by the Gastroenterology team and apparently miraculously, her diarrhea has largely subsided. She has eaten pancake and eggs for breakfast, tolerated well, had stool, but diarrhea is slowing down. Her left lower quadrant pain has also improved. She now really wants to go home and therefore, a decision was made to discharge her home to follow with the proof passer and Dr. Palm as an outpatient. PHYSICAL EXAMINATION: GENERAL: When I saw her this morning, she looked well and was clearly in no apparent respiratory distress. No pallor, jaundice, cyanosis, or thyromegaly. No jugular venous distension. No lower limb edema. VITAL SIGNS: Her heart rate was 67, blood pressure 132/88, temperature was 98.5, respiratory rate 20, and oxygen saturation was 98%. HEAD, EYES, EARS, NOSE AND THROAT: Normocephalic, atraumatic. NECK: Supple. HEART: Showed normal first and second sounds. No gallop, rub or murmur. CHEST: Clear to auscultation. No crepitation or rhonchi. ABDOMEN: Distended, soft, nontender. NEUROLOGIC: She was awake, alert, responding appropriately. All cranial nerves intact. EXTREMITIES: She moves extremities without difficulty. She ambulates without assistance or assistive devices. Her intake was 2015, no output was recorded. LABORATORY WORK: As of this morning showed a serum sodium 135, potassium 3.4, chloride 101, bicarbonate 25, anion gap of 9, BUN 10, creatinine 0.6, estimated GFR was 102. Glucose was 87, calcium was 8.7. Her prothrombin time was 27.4, INR of 2.6. DISCHARGE MEDICATIONS: The patient was discharged to continue on following medications: Amoxapine 50 mg at bedtime, clonazepam 0.5 mg daily, clonazepam 1 mg at bedtime, metoprolol succinate 50 mg daily, morphine sulfate 60 mg twice a day, potassium chloride 20 mEq twice a day, warfarin 5 mg daily, Ambien 10 mg at bedtime. FINAL DISCHARGE DIAGNOSES: Left lower abdominal pain and diarrhea, resolving. The patient has also anxiety and depression. Other medical problems include May-Thurner syndrome for which she has an inferior vena cava filter as well as left iliac vein stent and she is on Coumadin. Her INR is within therapeutic range. SABINE CREWS MD DR: XIMENA/julia JOB#: [id number] / [id number]
== END 2018-08-26 11:21 | disposition home or self-care (01) | DRG 392 ==
LOC: 5 NORTH 12:44
PROVIDERS: ADMIT Internal Medicine; ATTEND Internal Medicine
DX: R10.32 Left lower quadrant pain (principal); I87.1 Compression of vein; R19.7 Diarrhea, unspecified; K57.30 Diverticulosis of large intestine without perforation or abscess without bleeding; F17.210 Nicotine dependence, cigarettes, uncomplicated; F32.9 Major depressive disorder, single episode, unspecified; F41.9 Anxiety disorder, unspecified; G89.29 Other chronic pain; I10 Essential (primary) hypertension; I71.4 Abdominal aortic aneurysm, without rupture; Z79.01 Long term (current) use of anticoagulants; Z80.0 Family history of malignant neoplasm of digestive organs; Z86.718 Personal history of other venous thrombosis and embolism; Z90.49 Acquired absence of other specified parts of digestive tract; Z90.710 Acquired absence of both cervix and uterus; Z95.828 Presence of other vascular implants and grafts; Z88.1 Allergy status to other antibiotic agents; Z88.8 Allergy status to other drugs, medicaments and biological substances
CPT/HCPCS: 36415; 74177; 80048; 80053; 82710; 83690; 85025; 85027; 85610; 85651; 86140; 87045; 87177; J1885; J2543; J7030